=== PATIENT | female | born 1940 | race Caucasian/White ===

== ENCOUNTER → 2016-06-23 | Outpatient (CLI) | payer BC ==
[~2016-06-23] MED LIST: ANT25 PO; BNC40 PO; CLB/200 PO; FEXO1TAB46 PO; LPT/20 PO; NRV/5 PO; NSNN50; ONDA4TAB46 PO; PANT40TA2 PO; RANI300T2 PO; SITA50TA PO; TYLOTC500 PO; VTMD
--- NOTE | 2016-06-23 13:11 | MAMMOGRAPHY REPORT ---
UNILATERAL RIGHT DIGITAL DIAGNOSTIC MAMMOGRAM TOMOSYNTHESIS WITH CAD AND TARGETED RIGHT ULTRASOUND: 06/23/2016 CLINICAL HISTORY: The patient reports pain in her right breast extending to her axillary region. Sh jeannette notes that her provider felt a possible lump in the right breast during breast exam. TECHNIQUE: Breast tomosynthesis in addition to standard 2D mammography was performed. Current study was also evaluated with a Computer Aided Detection (CAD) system. Right CC and MLO 2-D and tomosynt hesis images were obtained. COMPARISON: Comparison is made to exams dated: 11/26/2015 mammogram, 11/23/2014 mammogram, 12/05/2013 s tereotactic biopsy, 12/05/2013 mammogram, 11/26/2013 mammogram, and 11/20/2013 mammogram - [facility]. BREAST COMPOSITION: There are scattered areas of fibroglandular density in the right breast. FINDINGS: A triangle marker fraser the site of the possible lump in the right 12:00 breast. There a re no suspicious masses, calcifications, or areas of architectural distortion noted in the right memo ast. There has been no significant interval change compared to prior exams. A biopsy marker clip i s again noted in the right upper outer quadrant. Scattered benign-appearing calcifications are stab le. Targeted ultrasound was performed of the area of pain pointed out by the patient in the right upper outer quadrant extending to the right axilla. Targeted ultrasound was also performed of the area of the possible lump felt by the patient's physician; the patient could not clearly feel the lump but pointed to the general 12:00 region. No suspicious masses or other suspicious sonographic abnormali ties are evident. A few incidentally noted cysts were seen, including an oval anechoic benign simpl e cyst measuring 8 x 6 mm in the right breast at 8:00, 2 cm from the nipple. 2 adjacent small benig n cysts clusters are noted in the right breast at 11:00, 3 cm from the nipple, one measuring 5 x 4 a nd the other measuring 4 x 6 mm. Morphologically normal right axillary lymph nodes are noted. IMPRESSION: ACR BI-RADS CATEGORY 2: BENIGN, TARGETED ULTRASOUND ACR BI-RADS CATEGORY 2: BENIGN No suspicious mammographic or sonographic abnormality to explain right upper outer quadrant/axillary breast pain. No suspicious mammographic or sonographic abnormality at the site of the possible rig ht 12:00 breast lump pointed out by the patient. There is no mammographic or targeted sonographic evidence of malignancy. Recommend clinical follow- up for right breast pain/lump, and recommend routine bilateral screening mammograms which are due Se 2016. The patient has been verbally notified of the results. Approximately 10% of breast cancers are not detected with mammography. A negative mammographic repor t should not delay biopsy if a clinically suggestive mass is present. Kirstie Daniels M.D. ah/:06/23/2016 11:10:31 Economic Manager: Clau Middleton, [facility] letter sent: Normal 1/2 BI-RADS Code: ACR BI-RADS Category 2: Benign Ultrasound BI-RADS: ACR BI-RADS Category 2: Benign
== END | disposition home or self-care (01) ==
LOC: C.MAMM 08:39
PROVIDERS: ATTEND Obstetrics & Gynecology
DX: N64.4 Mastodynia (principal)

== ENCOUNTER → 2016-08-22 | Outpatient (CLI) | payer BC | END | disposition home or self-care (01) | LOC: C.PAPS 13:56 | PROVIDERS: ATTEND Obstetrics & Gynecology | DX: Z12.4 Encounter for screening for malignant neoplasm of cervix (principal); N87.1 Moderate cervical dysplasia ==

== ENCOUNTER → 2016-12-04 | Outpatient (CLI) | payer BC ==
[~2016-12-04] MED LIST changes: -PANT40TA2 PO; +PRT/40 PO
--- NOTE | 2016-12-05 15:12 | MAMMOGRAPHY REPORT ---
BILATERAL DIGITAL SCREENING MAMMOGRAM TOMOSYNTHESIS WITH CAD: 12/04/2016 CLINICAL HISTORY: Routine screening. Patient has no complaints. TECHNIQUE: Breast tomosynthesis in addition to standard 2D mammography was performed. Current study was also evaluated with a Computer Aided Detection (CAD) system. COMPARISON: Comparison is made to exams dated: 06/23/2016 ultrasound, 06/23/2016 mammogram, 11/26/2015 m ammogram, 11/23/2014 mammogram, 12/05/2013 stereotactic biopsy, and 12/05/2013 mammogram - [facility]. BREAST COMPOSITION: There are scattered areas of fibroglandular density in both breasts. FINDINGS: There is a stable metallic biopsy marker in the retroareolar right breast, and a few benign -appearing calcifications in the right breast. No suspicious spiculated or irregular mass, messaging architect ural distortion or cluster of suspicious microcalcifications is seen. IMPRESSION: ACR BI-RADS CATEGORY 1: NEGATIVE There is no mammographic evidence of malignancy. A 1 year screening mammogram is recommended. The pa tient will receive written notification of the results. Approximately 10% of breast cancers are not detected with mammography. A negative mammographic report should not delay biopsy if a clinically suggestive mass is present. Bhavya Cruz M.D. ay/:12/04/2016 16:35:38 Stonemason: Clau Middleton, [facility] letter sent: Normal 1/2 BI-RADS Code: ACR BI-RADS Category 1: Negative
== END | disposition home or self-care (01) ==
LOC: C.MAMM 08:39
PROVIDERS: ATTEND Obstetrics & Gynecology
DX: Z12.31 Encounter for screening mammogram for malignant neoplasm of breast (principal)

== ENCOUNTER 2020-07-25 14:54 | Inpatient (IN) ==
[2020-07-25] MEDS ORDERED: SODIUM CHLORIDE 0.9% 1000ML 1,000 ML IV ONE (15:17)
[2020-07-25] MEDS ORDERED: FAMOTIDINE 20MG IV PUSH 20 MG/5 ML SYR IV STA (15:17)
[2020-07-25] MEDS ORDERED: METOCLOPRAMIDE HCL INJ 5 MG/ML 2 ML VIAL IV ONE (15:24)
[2020-07-25] MEDS ORDERED: SUCRALFATE 1 GM/10 ML UDC PO STA (15:25)
--- NOTE | 2020-07-25 15:34 | Emergency Department Note ---
Impression & Plan Hypokalemia, Hypomagnesemia, Acute renal insufficiency, Chronic nausea ED Provider Note NAME: ALBA FRY AGE: 79 SEX: F ARRIVES VIA: Walk-In INFORMANT: Patient, ED PROVIDER(S): Oz Powell MD CHIEF COMPLAINT: Nausea, generalized weakness, nausea. PLAN: Disposition: Admit MEDICAL DECISION MAKING: The patient is a pleasant 79-year-old woman with a past medical history of hypertension, type 2 diabetes, dizziness/vertigo, chronic nausea who presents to the emergency department for evaluation of flare of her chronic GI symptoms that have been persistent since June 23 when she reports she got sick after eating some fish and has not recovered. She reports she has had CAT scans and endoscopy through her PCP and GI specialist that were unremarkable. She reports she has gotten lightheaded and fallen at least twice once when she was outside in the garden and another when she was in the shower but denies hitting her head or losing consciousness. She reports she has been ambulating without difficulty since then and denies any headache changes in vision or hearing or weakness in extremities. Denies any bloody or black stools. She reports that she has been told to come to emergency department if she feels any point she is feeling too weak and so presents today for IV fluid hydration. On arrival the patient is fatigued appearing but no acute distress, afebrile stable vital signs. She has mild epigastric discomfort without discrete tenderness. She has no focal neurologic deficits. She appears clinically dry. EKG without overt acute ischemia. CXR negative for acute cardiopulmonary process. WBC, H/H, platelets wnl. Chemistry without acidosis. Cr. 1.5 newly elevated c/w clinically dry appearance. Potassium 2.3 and Magnesium 1.6 with repletion provided. Otherwise, electrolytes unremarkable. LFTs without significant abnormality. Troponin negative/undetectable. Lipase wnl. UA without convincing evidence of infection. Upon re-evaluation the patient as feeling improved after IVF hydration, Famotidine, Reglan, Carafate and initiation of electrolyte repletion. However, given her symptoms of lightheadedness/weakness in the setting of her ongoing chronic nausea and decreased appetitie, she agreed with plan for admission for further electrolyte repletion. Case was discussed with Dr. Justin, [facility] hospitalist, who will evaluate the patient for admission. Triage Nursing notes reviewed and agree them. Prior medical records reviewed Vital Signs: reviewed and remarkable for no significant abnormalities Differential diagnosis: Appendicitis, ovarian cyst, ovarian torsion, ectopic , TOA, PID, infections, diverticulitis, UTI, obstruction, mesenteric ischemia, aortic pathology, inflammatory bowel disease, renal colic, PUD, pancreatitis, biliary pathology, hernia, volvulus, constipation, as well as other pathologies. ER treatment provided: See below. Diagnostics interpreted by me: ECG: NSR, 84 bpm, no ectopy, no overt ST elevation or depression. Cardiac Monitoring: An order for continuous cardiac monitoring was placed and demonstrated NSR, 70 bpm, no ectopy. Laboratory studies: See below Imaging studies: See below Consultation(s): Case was discussed with Dr. Justin, [facility] hospitalist, who will evaluate the patient for admission. HPI: The patient is a pleasant 79-year-old woman with a past medical history of hypertension, type 2 diabetes, dizziness/vertigo, chronic nausea who presents to the emergency department for evaluation of flare of her chronic GI symptoms that have been persistent since June 23 when she reports she got sick after eating some fish and has not recovered. She reports she has had CAT scans and endoscopy through her PCP and GI specialist that were unremarkable. She reports she has gotten lightheaded and fallen at least twice once when she was outside in the garden and another when she was in the shower but denies hitting her head or losing consciousness. She reports she has been ambulating without difficulty since then and denies any headache changes in vision or hearing or weakness in extremities. Denies any bloody or black stools. She reports that she has been told to come to emergency department if she feels any point she is feeling too weak and so presents today for IV fluid hydration. ROS: See above HPI for pertinent positives & negatives. A total of 10 systems reviewed and were otherwise negative. PAST MEDICAL HISTORY:See Below PAST SURGICAL HISTORY:See Below FAMILY HISTORY:See Below SOCIAL HISTORY:See Below HOME MEDICATIONS:See Below ALLERGIES:See Below VITALS:See Below PHYSICAL EXAMINATION: GENERAL: Awake, alert, fatigued-appearing, in no distress HENT: Normocephalic, atraumatic. Oropharynx with dry mucous membranes and otherwise unremarkable. EYES: Normal conjunctiva. Sclera non-icteric. NECK: Supple. No nuchal rigidity. FROM. No JVD. RESPIRATORY: Clear to auscultation. CARDIAC: Regular rate, normal rhythm. Extremities warm and well perfused. Pulses equal. ABDOMEN: Soft, non-distended. Mild epigastric discomfort without discrete tenderness to palpation. No rebound or guarding. No masses. RECTAL: Deferred. MUSCULOSKELETAL: Chest examination reveals no tenderness. The back is symmetrical on inspection without obvious abnormality. There is no CVA tenderness to palpation. No joint edema. LOWER EXTREMITIES: Calves are equal size bilaterally and non-tender. No edema. No discoloration. NEURO: Normal sensorium. No sensory or motor deficits noted. 5/5 strength and SILT x 4 extremities. Cerebellar function intact including [id number]-lasc, alternating palms, [id number]. SKIN: No rash or jaundice noted. Oz Powell MD Past Med/Surg History Medical History DM (diabetes mellitus) HTN (hypertension) Hyperlipidemia IBS (irritable bowel syndrome) Social History Smoking Status: Never smoker Hx Alcohol Use: No Hx Substance Use: No Preferred Language: [employer] [employer] Worker Required: No Beliefs That Will Affect Care: None Current Living Situation: Spouse Current Living Situation Comment: Other Information That Helps Us Care for You: No Feels Safe at Home: Yes Safety Concerns: Feels Safe At This Time Assistive Devices: Glasses Allergies Allergies Allergy/AdvReac Type Severity Reaction Status Date / Time omeprazole Allergy Unknown GI SYMPTOMS Verified 07/25/20 15:40 Home Meds Home Medications Medication Instructions Recorded Confirmed acetaminophen [Tylenol Extra 1,000 mg PO BID PRN 07/25/20 07/25/20 Strength] amlodipine 10 mg PO QAM 07/25/20 07/25/20 atorvastatin 20 mg PO HS 07/25/20 07/25/20 cyanocobalamin (vitamin B-12) 1,000 mcg SUBLINGUAL QAM 07/25/20 07/25/20 [Vitamin B-12] dicyclomine 10 mg PO QID PRN 07/25/20 07/25/20 ergocalciferol (vitamin D2) 50,000 unit PO Q14D 07/25/20 07/25/20 [Vitamin D2] famotidine 40 mg PO BIDM 07/25/20 07/25/20 fexofenadine 180 mg PO DAILY PRN 07/25/20 07/25/20 fluticasone propionate 2 spray INTRANASAL QAM PRN 07/25/20 07/25/20 glipizide 5 mg PO QAM 07/25/20 07/25/20 losartan 100 mg PO QAM 07/25/20 07/25/20 meclizine 25 mg PO TID PRN 07/25/20 07/25/20 metoclopramide HCl 5 mg PO AC 07/25/20 07/25/20 nystatin-triamcinolone [Mycolog II] 1 applic TOPICAL UD 07/25/20 07/25/20 ondansetron HCl 8 mg PO Q8H PRN 07/25/20 07/25/20 tramadol 50 mg PO Q6H PRN 07/25/20 07/25/20 triamcinolone acetonide 1 applic TOPICAL BID PRN 07/25/20 07/25/20 Results & Data (ED) Vital Signs Vital Signs - 24 hr 07/25/20 15:08 07/25/20 17:00 Temperature 36.6 C Temperature Source Temporal Artery Scan Pulse Rate 84 91 H Respiratory Rate 18 17 Respiratory Depth Normal Blood Pressure 162/85 H 140/86 Blood Pressure Mean 110 104 Pulse Oximetry 95 95 Oxygen Delivery Method Room Air Sepsis Recent Fever Within 48 Hours No Sepsis New/Unexplained Change in Mental Status N/A Sepsis Action Taken by Nursing No Action Required Laboratory Data Attestation: I reviewed the patient's lab results. Result diagrams: 07/25/20 15:28 07/25/20 15:28 Lab Results 07/25/20 07/25/20 07/25/20 Range/Units 15:28 15:28 16:44 WBC 6.61 (4.8-10.8) K/uL RBC 4.39 (4.2-5.4) M/uL Hgb 13.1 (12.0-16.0) g/dL Hct 38.7 (37-47) % MCV 88.2 (80-100) fL MCH 29.8 (25-34) pg MCHC 33.9 (32-36) g/dL RDW Std Deviation 38.6 (36.4-46.3) fL RDW Coeff of Noah 12.1 (11.5-14.5) % Plt Count 253 (130-400) K/uL MPV 9.6 (7.4-10.4) fL Immature Gran % (Auto) 0.2 % Neut % (Auto) 61.0 % Lymph % (Auto) 30.9 % Henry % (Auto) 6.2 % Eos % (Auto) 1.2 % Baso % (Auto) 0.5 % Neut # (Auto) 4.04 (1.4-6.5) K/uL Lymph # (Auto) 2.04 (1.2-3.4) K/uL Henry # (Auto) 0.41 (0.11-0.59) K/uL Eos # (Auto) 0.08 (0-0.5) K/uL Baso # (Auto) 0.03 (0-0.2) K/uL Immature Gran # (Auto) 0.01 (0.00-0.02) K/uL Sodium 140 (136-145) mmol/L Potassium 2.3 L* (3.5-5.1) mmol/L Chloride 99 (98-107) mmol/L Carbon Dioxide 32 (21-32) mmol/L Anion Gap 8.0 (3-11) BUN 12 (7-18) mg/dl Creatinine 1.52 H (0.6-1.2) mg/dl Est Cr Clr Drug Dosing 27.1 ml/min Est GFR ( Amer) 37.9 Est GFR (Non-Af Amer) 32.7 BUN/Creatinine Ratio 7.7 L (10-20) Glucose 144 H (70-99) mg/dl Calcium 9.7 (8.5-10.1) mg/dl Phosphorus 3.3 (2.5-4.9) mg/dl Magnesium 1.6 L (1.8-2.4) mg/dl Total Bilirubin 1.1 H (0.2-1) mg/dl Direct Bilirubin 0.2 (0-0.2) mg/dl AST 29 (15-37) U/L ALT 22 (12-78) U/L Alkaline Phosphatase 75 (45-117) U/L Troponin I < 0.015 (0-0.045) ng/ml Total Protein 7.9 (6.4-8.2) gm/dl Albumin 4.1 (3.4-5.0) gm/dl Globulin 3.8 (2.5-4.0) gm/dl Albumin/Globulin Ratio 1.1 (0.9-2) Lipase 144 (73-393) U/L TSH 0.817 (0.300-4.500) uIu/ml Urine Color Yellow Urine Appearance Clear (Clear) Urine pH 7.5 (4.5-7.5) Ur Specific [place] 1.006 (1.000-1.030) Urine Protein Negative (Negative) Urine Glucose (UA) Negative (Negative) Urine Ketones Negative (Negative) Urine Blood Negative (Negative) Urine Nitrite Negative (Negative) Urine Bilirubin Negative (Negative) Urine Urobilinogen Negative (Negative) Ur Leukocyte Esterase Negative (Negative) Administered Medications Atorvastatin Calcium (Atorvastatin 20 Mg Tab) 20 mg PO HS YOUNG Stop: 08/24/20 21:11 Last Admin: 07/25/20 21:43 Dose: 20 mg Documented by: [id number] Dicyclomine HCl (Dicyclomine Hcl 10 Mg Cap) 10 mg PO QID PRN PRN Reason: Nausea Stop: 08/24/20 21:11 Last Admin: 07/25/20 21:44 Dose: 10 mg Documented by: [id number] Ergocalciferol (Ergocalciferol 50,000 Units 1250 Mcg Cap) 50,000 units PO Q14D YOUNG Stop: 08/24/20 21:11 Last Admin: 07/25/20 21:45 Dose: 50,000 units Documented by: [id number] Potassium Chloride/Sodium Chloride (Normal Saline W/20 Meq Kcl) 20 meq in 1,000 mls @ 100 mls/hr IV .Q10H YOUNG Stop: 07/26/20 07:11 Last Admin: 07/25/20 21:46 Dose: 100 mls/hr Documented by: [id number] Nystatin/Triamcinolone Acetonide (Nystatin/Triamcin Cr 15 Gm Tube) 1 appln EXT BID YOUNG Stop: 08/24/20 21:11 Last Admin: 07/25/20 21:45 Dose: 1 appln Documented by: [id number] Discontinued Medications Sodium Chloride (Nss 1000ml) 1,000 mls @ 999 mls/hr IV .Q1H1M ONE Stop: 07/25/20 16:17 Last Infusion: 07/25/20 16:51 Dose: 0 mls/hr Documented by: [id number] Admin: 07/25/20 15:50 Dose: 999 mls/hr Documented by: [id number] Famotidine (Pepcid 20mg Iv Push) 20 mg in 5 mls @ 2.5 mls/min IV NOW STA Stop: 07/25/20 15:18 Last Admin: 07/25/20 15:50 Dose: 2.5 mls/min Documented by: [id number] Magnesium Sulfate/Dextrose (Magnesium Sulfate / D5w) 1 gm in 100 mls @ 100 mls/hr IV Q1H YOUNG Stop: 07/25/20 18:08 Last Infusion: 07/25/20 19:16 Dose: 0 mls/hr Documented by: [id number] Admin: 07/25/20 17:50 Dose: 100 mls/hr Documented by: [id number] Infusion: 07/25/20 17:36 Dose: 0 mls/hr Documented by: [id number] Admin: 07/25/20 16:35 Dose: 100 mls/hr Documented by: [id number] Potassium Chloride (K Jaswinder / Wtr) 10 meq in 100 mls @ 100 mls/hr IV Q1H YOUNG Stop: 07/25/20 18:14 Last Infusion: 07/25/20 19:16 Dose: 0 mls/hr Documented by: [id number] Admin: 07/25/20 17:50 Dose: 100 mls/hr Documented by: [id number] Infusion: 07/25/20 17:36 Dose: 0 mls/hr Documented by: [id number] Admin: 07/25/20 16:35 Dose: 100 mls/hr Documented by: [id number] Metoclopramide HCl (Metoclopramide Hcl Inj 5 Mg/Ml 2 Ml Vial) 5 mg IV ONE ONE Stop: 07/25/20 15:25 Last Admin: 07/25/20 15:50 Dose: 5 mg Documented by: [id number] Potassium Chloride (Potassium Chloride Crtab 20 Meq Tabcr) 40 meq PO NOW STA Stop: 07/25/20 16:09 Last Admin: 07/25/20 16:34 Dose: 40 meq Documented by: [id number] Sucralfate (Sucralfate 1 Gm/10 Ml Udc) 1 gm PO NOW STA Stop: 07/25/20 15:26 Last Admin: 07/25/20 15:50 Dose: 1 gm Documented by: [id number] Imaging Data Radiologist's Impression: Chest X-Ray 07/25/20 15:17 XR chest 1V portable HISTORY: 79 years-old Female Chest Pain acute atypical chest pain COMPARISON: None TECHNIQUE: Portable AP view the chest FINDINGS: Cardiomediastinal and hilar silhouettes are within normal limits. No pneumothorax, pleural effusion, airspace consolidation or overt pulmonary edema. Degenerative changes of the shoulders and spine. IMPRESSION: No acute process. ACT 112: Negative or not required by law. The above report was generated using voice recognition software. It may contain grammatical, syntax or spelling errors. Electronically signed by: Hayden Rogers M.D. 07/25/2020 4:07 PM Discharge Plan Visit Data Chief Complaint: Nausea Stated Complaint: NAUSEA ED Provider: Oz Powell Discharge Problem: Hypokalemia, Hypomagnesemia, Acute renal insufficiency, Chronic nausea Patient Disposition: Admitted As Inpatient Discharge Instructions Interventions: ED Discharge Assessment Last Done: 07/25/20 21:02
[2020-07-25 15:43] LABS: Basophils # (auto) 0.03 K/uL (0-0.2); Basophils % (auto) 0.5 %; Eosinophils # (auto) 0.08 K/uL (0-0.5); Eosinophils % (auto) 1.2 %; Hematocrit (blood only) 38.7 % (37-47); Hemoglobin 13.1 g/dL (12.0-16.0); Immature Granulocytes # (auto) 0.01 K/uL (0.00-0.02); Immature Granulocytes % (auto) 0.2 %; Lymphocytes # (auto) 2.04 K/uL (1.2-3.4); Lymphocytes % (auto) 30.9 %; Mean Corpuscular Hemoglobin 29.8 pg (25-34); Mean Corpuscular Hgb Conc 33.9 g/dL (32-36); Mean Corpuscular Volume 88.2 fL (80-100); Mean Platelet Volume 9.6 fL (7.4-10.4); Monocytes # (auto) 0.41 K/uL (0.11-0.59); Monocytes % (auto) 6.2 %; Neutrophils # (auto) 4.04 K/uL (1.4-6.5); Platelet Count 253 K/uL (130-400); RDW Coefficient of Variation 12.1 % (11.5-14.5); RDW Standard Deviation 38.6 fL (36.4-46.3); Red Blood Count 4.39 M/uL (4.2-5.4); White Blood Count 6.61 K/uL (4.8-10.8)
[2020-07-25 16:06] LABS: Alanine Aminotransferase 22 U/L (12-78); Albumin Level 4.1 gm/dl (3.4-5.0); Aspartate Aminotransferase 29 U/L (15-37); BUN Creatinine Ratio 7.7 (10-20); Bilirubin Direct 0.2 mg/dl (0-0.2); Blood Urea Nitrogen 12 mg/dl (7-18); Calcium 9.7 mg/dl (8.5-10.1); Carbon Dioxide 32 mmol/L (21-32); Chloride 99 mmol/L (98-107); Creatinine Clr Calc Pharmacy 27.1 ml/min; Est GFR (African American) 37.9; Est GFR (Non-African American) 32.7; Glucose 144 mg/dl (70-99); Lipase 144 U/L (73-393); Magnesium 1.6 mg/dl (1.8-2.4); Potassium 2.3 mmol/L (3.5-5.1); Sodium 140 mmol/L (136-145)
[2020-07-25] MEDS ORDERED: POTASSIUM CHLORIDE CRTAB 20 MEQ TABCR PO STA (16:08)
--- NOTE | 2020-07-25 16:08 | XRay Report ---
XR chest 1V portable HISTORY: 79 years-old Female Chest Pain acute atypical chest pain COMPARISON: None TECHNIQUE: Portable AP view the chest FINDINGS: Cardiomediastinal and hilar silhouettes are within normal limits. No pneumothorax, pleural effusion, airspace consolidation or overt pulmonary edema. Degenerative changes of the shoulders and spine. IMPRESSION: No acute process. ACT 112: Negative or not required by law. The above report was generated using voice recognition software. It may contain grammatical, syntax o r spelling errors. Electronically signed by: Hayden Rogers M.D. 07/25/2020 4:07 PM
[2020-07-25 16:26] LABS: Albumin Globulin Ratio 1.1 (0.9-2); Alkaline Phosphatase 75 U/L (45-117); Bilirubin,Total 1.1 mg/dl (0.2-1); Globulin 3.8 gm/dl (2.5-4.0); Phosphorus 3.3 mg/dl (2.5-4.9); Thyroid Stimulating Hormone 0.817 uIu/ml (0.300-4.500); Total Protein 7.9 gm/dl (6.4-8.2); Troponin I < 0.015 ng/ml (0-0.045)
[2020-07-25] MEDS: POTASSIUM CHLORIDE / WTR 10 MEQ/100 ML PLCT IV SCH ×2 (16:35→17:50)
[2020-07-25] MEDS: MAGNESIUM SULFATE / D5W 1 GM/100 ML BAG IV SCH ×2 (16:35→17:50)
[2020-07-25 16:54] LABS: Appearance Urine Clear (Clear); Bilirubin Urine Negative (Negative); Blood Urine Negative (Negative); Color Urine Yellow; Glucose Urine UA Negative (Negative); Ketones Urine Negative (Negative); Leukocyte Esterase Urine Negative (Negative); Nitrite Urine Negative (Negative); Protein Urine Negative (Negative); Specific Gravity Urine 1.006 (1.000-1.030); Urobilinogen Urine Negative (Negative); pH Urine 7.5 (4.5-7.5)
--- NOTE | 2020-07-25 17:43 | History & Physical Report ---
Date of Service July 25, 2020 Assessment & Plan (1) Abdominal pain: Is been a chronic ongoing GI symptoms with abdominal bloating, nausea, poor appetite Has been following with gastroenterology, had multiple GI studies/procedure: EGD gastric emptying, CT abdomen pelvis Currently presents with electrolyte imbalance secondary to poor appetite, dehydration, early satiety Ordered for IV fluids clear liquid diet [facility] Acute renal failure: Secondary to poor appetite, Does not have any vomiting episode or diarrhea For IV fluids avoid NSAIDs, repeat lab in the a.m. Low potassium/low mag Due to above, replaced, ordered for repeat lab in a.m. Full code Disposition: PT OT eval requested for deconditioning, Social service consult for discharge planning, expected to be discharged home when medically stable updated at bedside History of Present Illness Chief Complaint: Abdominal distention/chronic nausea Primary Care Provider: Sanket Chandler MD This is a 79-year-old female, presented to ER, she has been experiencing abdominal distention, nausea, poor appetite, early satiety since June 22, Seen by [facility] gastroenterology, patient had a gastric emptying study last year February, Had EGD and CT abdomen pelvis as an outpatient, no significant pathology was found. Started on Reglan as prokinetics., Reports she could not have a complete meal since last 2 months, She will be able to have few bites of toast in the morning, her abdominal discomfort will continue so much that she will not be able to have any lunch, did not had any vomiting but persistent nausea and dry heaving No diarrhea, had intermittent constipation. No blood in stool, Appetite is extremely poor, no fever or chills. In the ER she noted to have low potassium magnesium, Patient is very anxious, worried about her ongoing issue, with no definite diagnosis. Will be admitted to the floor, will order for clear liquid diet, advance as tolerated Her electrolytes will be replaced [facility] GI consulted Allergies Allergy/AdvReac Type Severity Reaction Status Date / Time omeprazole Allergy Unknown GI SYMPTOMS Verified 07/25/20 15:40 Home Medications Medication Instructions Recorded Confirmed Type acetaminophen [Tylenol Extra 1,000 mg PO BID PRN 07/25/20 07/25/20 History Strength] amlodipine 10 mg PO QAM 07/25/20 07/25/20 History atorvastatin 20 mg PO HS 07/25/20 07/25/20 History cyanocobalamin (vitamin B-12) 1,000 mcg SUBLINGUAL QAM 07/25/20 07/25/20 History [Vitamin B-12] dicyclomine 10 mg PO QID PRN 07/25/20 07/25/20 History ergocalciferol (vitamin D2) 50,000 unit PO Q14D 07/25/20 07/25/20 History [Vitamin D2] famotidine 40 mg PO BIDM 07/25/20 07/25/20 History fexofenadine 180 mg PO DAILY PRN 07/25/20 07/25/20 History fluticasone propionate 2 spray INTRANASAL QAM PRN 07/25/20 07/25/20 History glipizide 5 mg PO QAM 07/25/20 07/25/20 History losartan 100 mg PO QAM 07/25/20 07/25/20 History meclizine 25 mg PO TID PRN 07/25/20 07/25/20 History metoclopramide HCl 5 mg PO AC 07/25/20 07/25/20 History nystatin-triamcinolone [Mycolog II] 1 applic TOPICAL UD 07/25/20 07/25/20 History ondansetron HCl 8 mg PO Q8H PRN 07/25/20 07/25/20 History tramadol 50 mg PO Q6H PRN 07/25/20 07/25/20 History triamcinolone acetonide 1 applic TOPICAL BID PRN 07/25/20 07/25/20 History Past Med/Surg History Medical History DM (diabetes mellitus) HTN (hypertension) Hyperlipidemia IBS (irritable bowel syndrome) Social History Smoking Status: Never smoker Hx Alcohol Use: No Hx Substance Use: No Preferred Language: Bolivian Communication Ability: Effective Marketing Database Consultant Required: No Beliefs That Will Affect Care: None marital status: Current Living Situation: Spouse Current Living Situation Comment: Other Information That Helps Us Care for You: No Feels Safe at Home: Yes Safety Concerns: Feels Safe At This Time Assistive Devices: Glasses Review of Systems Review of Systems: All systems reviewed & are unremarkable except as noted in Subjective Physical Exam Physical Exam: Physical exam: General: No acute distress, alert awake oriented x3 HEENT: PERRLA, EOMI, Heart: Regular S1-S2, no carotid bruit, no JVD, no lower extremity edema Lungs: Clear to auscultate, no wheeze or rales Abdomen: Soft some tenderness in epigastric area, normal bowel sound Extremity: No cyanosis, no deformity, normal strength 5 out of 5 with upper and lower Neuro: No focal neurological deficit normal speech, normal visual field, Motor strength : normal both upper and lower extremity, sensation intact Psych: Alert awake oriented x3, normal affect Results & Data Results & Data ([facility]) Vital Signs (Past 12 Hours) Vital Signs Temp Pulse Resp BP Pulse Ox 07/25/20 15:08 36.6 C 84 18 162/85 H 95 Code Status & VTE Plan VTE Prophylaxis Plan VTE Prophylaxis will be ordered: Yes
[2020-07-25 19:27] LABS: Influenza A virus by PCR Negative (Neg); Influenza B virus by PCR Negative (Neg); RSV by PCR Negative (Neg); SARS CoV2 RNA(COVID-19) InHosp NEGATIVE (Negative)
[2020-07-25] MEDS ORDERED: TRIAMCINOLONE ACET 0.1% CR 15 GM TUBE TOP PRN (21:12)
[2020-07-25] MEDS ORDERED: NSS + 20MEQ KCL 20 MEQ/1,000 ML BAG IV SCH (21:12)
[2020-07-25] MEDS ORDERED: FEXOFENADINE HCL 180 MG TAB PO PRN (21:12)
[2020-07-25] MEDS ORDERED: MAGNESIUM HYDROXIDE SUSP 30 ML UDC PO PRN (21:12)
[2020-07-25] MEDS ORDERED: POLYETHYLENE (MIRALAX) 17 GM PACK PO PRN (21:12)
[2020-07-25] MEDS ORDERED: NITROGLYCERIN SL 0.4 MG/TAB TAB SL PRN (21:12)
[2020-07-25] MEDS ORDERED: ONDANSETRON INJ 2 MG/ML 2 ML VIAL IV PRN (21:12)
[2020-07-25] MEDS ORDERED: ERGOCALCIFEROL 50,000 UNITS 1250 MCG CAP PO SCH (21:12)
[2020-07-25] MEDS ORDERED: ALUMINUM/MAGNESIUM SUSP 30 ML UDC PO PRN (21:12)
[2020-07-25] MEDS ORDERED: FLUTICASONE PROPIONATE NA SPR 16 GM BTL PRN (21:12)
[2020-07-25] MEDS ORDERED: traMADol HCL 50 MG TABLET PO PRN (21:12)
[2020-07-25] MEDS ORDERED: ACETAMINOPHEN 500 MG TAB PO PRN (21:16)
[2020-07-25] MEDS ORDERED: MECLIZINE HCL 25 MG TAB PO PRN (21:18)
[2020-07-25] MEDS: ATORVASTATIN 20 MG TAB PO SCH (21:43)
[2020-07-25] MEDS: DICYCLOMINE HCL 10 MG CAP PO PRN (21:44)
[2020-07-25] MEDS: NYSTATIN/TRIAMCIN CR 15 GM TUBE EXT SCH (21:45)
--- NOTE | 2020-07-25 23:13 | Electrocardiogram Report ---
Test Reason : Blood Pressure : / mmHG Vent. Rate : 084 BPM Atrial Rate : 084 BPM P-R Int : 152 ms QRS Dur : 092 ms QT Int : 378 ms P-R-T Axes : 043 -38 081 degrees QTc Int : 446 ms Normal sinus rhythm Left axis deviation Abnormal ECG When compared with ECG of 04-FEB-2014 10:45, No significant change was found Confirmed by Bryn Spaulding ([id number]) on 07/25/2020 11:13:22 PM Referred By: REFERRED SELF Confirmed By:Bryn Spaulding
[2020-07-26 07:44] LABS: BUN Creatinine Ratio 6.4 (10-20); Calcium 9.1 mg/dl (8.5-10.1); Creatinine Clr Calc Pharmacy 36.2 ml/min; Est GFR (African American) 54.3; Est GFR (Non-African American) 46.8; Magnesium 2.1 mg/dl (1.8-2.4); Potassium 2.7 mmol/L (3.5-5.1)
[2020-07-26] MEDS: CYANOCOBALAMIN 500 MCG TABLET (VITAMIN B-12) PO SCH (08:07)
[2020-07-26] MEDS: METOCLOPRAMIDE HCL 5 MG TABLET PO SCH ×3 (08:07→16:55)
[2020-07-26] MEDS: DICYCLOMINE HCL 10 MG CAP PO PRN (08:07)
[2020-07-26] MEDS: LOSARTAN POTASSIUM 50 MG TAB PO SCH (08:07)
[2020-07-26] MEDS: amLODIPine BESYLATE 5 MG TAB PO SCH (08:08)
[2020-07-26] MEDS: NYSTATIN/TRIAMCIN CR 15 GM TUBE EXT SCH ×2 (08:08→22:29)
[2020-07-26] MEDS: FAMOTIDINE 40 MG TABLET PO SCH ×2 (08:08→16:55)
[2020-07-26] MEDS ORDERED: POTASSIUM CHLORIDE CRTAB 20 MEQ TABCR PO STA (11:59)
[2020-07-26] MEDS ORDERED: POTASSIUM CHLORIDE 10 MEQ TABCR PO STA (12:33)
--- NOTE | 2020-07-26 13:54 | Gastrointestinal Consultation ---
Date of Consultation July 26, 2020 History of Present Illness Attending Physician: Twyla Justin MD Please see midlevel note for details. Pt with PMH sig remote fundoplication, DM with A1 c 7's, chronic nausea, admit with recent worsening of symptoms She reports nausea and subxiphoid pain after eating. Her norwood has included EGD in June + January, GES in February, trial of Reglan. On exam, she is comfortable, pleasant. Abd is soft and NT. Psych exam is notable for flat affect, some mild diff with word finding, and emotional lability. DDX includes gastric dysmotility, functional disease, occult panreatic/biliary pathology. Would consider panc imaging, mesenteric dopplers, trial of Remeron. Allergies Allergy/AdvReac Type Severity Reaction Status Date / Time omeprazole Allergy Unknown GI SYMPTOMS Verified 07/25/20 15:40 Home Medications Medication Instructions Recorded Confirmed Type acetaminophen [Tylenol Extra 1,000 mg PO BID PRN 07/25/20 07/25/20 History Strength] amlodipine 10 mg PO QAM 07/25/20 07/25/20 History atorvastatin 20 mg PO HS 07/25/20 07/25/20 History cyanocobalamin (vitamin B-12) 1,000 mcg SUBLINGUAL QAM 07/25/20 07/25/20 History [Vitamin B-12] dicyclomine 10 mg PO QID PRN 07/25/20 07/25/20 History ergocalciferol (vitamin D2) 50,000 unit PO Q14D 07/25/20 07/25/20 History [Vitamin D2] famotidine 40 mg PO BIDM 07/25/20 07/25/20 History fexofenadine 180 mg PO DAILY PRN 07/25/20 07/25/20 History fluticasone propionate 2 spray INTRANASAL QAM PRN 07/25/20 07/25/20 History glipizide 5 mg PO QAM 07/25/20 07/25/20 History losartan 100 mg PO QAM 07/25/20 07/25/20 History meclizine 25 mg PO TID PRN 07/25/20 07/25/20 History metoclopramide HCl 5 mg PO AC 07/25/20 07/25/20 History nystatin-triamcinolone [Mycolog II] 1 applic TOPICAL UD 07/25/20 07/25/20 History ondansetron HCl 8 mg PO Q8H PRN 07/25/20 07/25/20 History tramadol 50 mg PO Q6H PRN 07/25/20 07/25/20 History triamcinolone acetonide 1 applic TOPICAL BID PRN 07/25/20 07/25/20 History Patient History Medical History DM (diabetes mellitus) HTN (hypertension) Hyperlipidemia IBS (irritable bowel syndrome) Social History Smoking Status: Never smoker Hx Alcohol Use: No Hx Substance Use: No Preferred Language: Kiswahili Communication Ability: Effective [employer] Required: No Beliefs That Will Affect Care: None marital status: Current Living Situation: Spouse Current Living Situation Comment: Other Information That Helps Us Care for You: No Feels Safe at Home: Yes Safety Concerns: Feels Safe At This Time Assistive Devices: Glasses Results & Data ([facility]) Vital Signs (Past 12 Hours) Vital Signs Temp Pulse Pulse Resp BP Pulse Ox 07/26/20 11:02 37 C 76 18 121/73 97 07/26/20 08:00 77 07/26/20 07:09 36.6 C 76 18 138/73 95 07/26/20 02:15 36.5 C 70 20 125/71 91
[2020-07-26] MEDS ORDERED: FOSAPREPITANT DIMEGLUMINE 150 MG in SODIUM CHLORIDE 0.9% 145 ML IV ONE (15:30)
[2020-07-26] MEDS ORDERED: LORazepam 0.5 MG/1 ML VIAL IV SCH (17:00)
--- NOTE | 2020-07-26 17:01 | Gastrointestinal Consultation ---
Date of Consultation July 26, 2020 Assessment & Plan (1) Chronic nausea: Will r/o pancreas pathology with MRI/MRCP. Will try Remeron, low dose at bedtime for sadness and to improve appetite and nausea. Aware she is on Effexor - may want to decrease the dose of Effexor. Continue the Zofran 4mg Q 6hrs prn. Continue the metoclopramide 5mg TID before meals. Trial of Emend. Consider Neuro and psych causes of nausea - consider imaging of the head. Present on Admission?: Yes Supervising Physician Co-Signing Physician Notes Attg: Please see my separate note. History of Present Illness Reason for Consultation: chronic abdominal pain /nausea Requesting Physician: Dr. Justin Attending Physician: Twyla Justin MD History of Present Illness Ms. Ana Solitario is a 79 yr old female pt of Dr. Chandler with a hx of polymyalgia rheumatica, HTN, hyperlipidemia, DM-2, post cholecystectomy and hysterectomy who has chronic nausea and IBS. On June 18, she had a very bad day with nausea, vomiting, dry heaves and diarrhea. Since that day, she has continued with severe nausea, poor appetite and has had considerable sadness related to feeling poorly and not being able to participate in family get togethers. She also notes having had memory problems that started around the same time. She has a poor appetite and has lost about 15 lbs since April 2020. She tells me that she presented to the ED because she had been encouraged to come if symptoms worsened and family suggested hospital evaluation because they are worried that she has been sick for a long time. She has been followed in GI clinic by myself and has undergone EGD in December for dysphagia (gastric polyps, esophagus empirically dilated), and on 07/06/20 normal. Her most recent colonoscopy was in 2018 with diverticulosis and hemorrhoids, no polyps. She had an episode of JUAN LUIS on CKD in mid June related to poor intake with improvement to Cr 1.3 a week later, but blood count, labs and lipase have been normal. She had some diarrhea a few weeks ago and stools for C- diff and GI path were negative. CT abd/pelvis w/o contrast July 06 was normal with the exception of a possible kidney cyst and recommended US follow up. Gastric emptying study in February was borderline delayed and metoclopramide 5mg TID did not improve symptoms (a trial was repeated again BID recently w/o eff ect). Zofran and famotidine has helped minimally. On arrival, she was hypokalemic with K and has received po replacement. She has had 3 episodes of diarrhea this afternoon. She denies any significant abdominal pain. She is awake, alert, oriented, though has some word finding problems and talks about difficulty remembering. Allergies Allergy/AdvReac Type Severity Reaction Status Date / Time omeprazole Allergy Unknown GI SYMPTOMS Verified 07/25/20 15:40 Home Medications Medication Instructions Recorded Confirmed Type acetaminophen [Tylenol Extra 1,000 mg PO BID PRN 07/25/20 07/25/20 History Strength] amlodipine 10 mg PO QAM 07/25/20 07/25/20 History atorvastatin 20 mg PO HS 07/25/20 07/25/20 History cyanocobalamin (vitamin B-12) 1,000 mcg SUBLINGUAL QAM 07/25/20 07/25/20 History [Vitamin B-12] dicyclomine 10 mg PO QID PRN 07/25/20 07/25/20 History ergocalciferol (vitamin D2) 50,000 unit PO Q14D 07/25/20 07/25/20 History [Vitamin D2] famotidine 40 mg PO BIDM 07/25/20 07/25/20 History fexofenadine 180 mg PO DAILY PRN 07/25/20 07/25/20 History fluticasone propionate 2 spray INTRANASAL QAM PRN 07/25/20 07/25/20 History glipizide 5 mg PO QAM 07/25/20 07/25/20 History losartan 100 mg PO QAM 07/25/20 07/25/20 History meclizine 25 mg PO TID PRN 07/25/20 07/25/20 History metoclopramide HCl 5 mg PO AC 07/25/20 07/25/20 History nystatin-triamcinolone [Mycolog II] 1 applic TOPICAL UD 07/25/20 07/25/20 History ondansetron HCl 8 mg PO Q8H PRN 07/25/20 07/25/20 History tramadol 50 mg PO Q6H PRN 07/25/20 07/25/20 History triamcinolone acetonide 1 applic TOPICAL BID PRN 07/25/20 07/25/20 History Patient History Medical History DM (diabetes mellitus) HTN (hypertension) Hyperlipidemia IBS (irritable bowel syndrome) Social History Smoking Status: Never smoker Hx Alcohol Use: No Hx Substance Use: No Preferred Language: Azeri Communication Ability: Effective 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 : Denies pain on urination Skin: No jaundice, itching or new rashes Physical Exam Constitutional: WD/WN, vitals as above + overweight (mildly) Eyes: PERRL, conjunctivae normal, anicteric sclerae ENMT: external ear and nose normal, oropharynx normal Neck: trachea midline, no thyromegaly Respiratory: normal respiratory effort, lungs clear to auscultation Cardiovascular: RRR, no murmur, no edema Gastrointestinal (Abdomen): normal bowel sounds, soft, nontender, no hepatosplenomegaly Musculoskeletal: no cyanosis or clubbing, extremities motor strength 5/5 Skin: no rashes, warm and dry Neurologic: PERRL, EOMI, accommodation nl, no face palsy, no dysarthria Psychiatric: Orientation: alert and oriented x 3 tearful during interview but quickly recovered to calm; always pleasant and appreciative but voiced frustration Lymphatic: no cervical or axillary lymphadenopathy Results & Data ([facility]) Vital Signs (Past 12 Hours) Vital Signs Temp Pulse Pulse Resp BP Pulse Ox 07/26/20 15:50 37.1 C 79 18 142/77 H 97 07/26/20 15:37 108 H 07/26/20 11:02 37 C 76 18 121/73 97 07/26/20 08:00 77 07/26/20 07:09 36.6 C 76 18 138/73 95 Laboratory Results WBC 6, Hb 13, hct 38, platelets 13, glucose 253, Na 143, K 2.7, Cl 107, BUN 7, Cr 1.13. LFTs and lipase normal. Diagnostic Findings CXR No acute process.
[2020-07-26] MEDS: ATORVASTATIN 20 MG TAB PO SCH (22:28)
[2020-07-26] MEDS: MIRTAZAPINE TAB 15 MG TAB PO SCH (22:29)
--- NOTE | 2020-07-26 23:23 | Hospitalist Progress Note ---
Date of Service July 26, 2020 Assessment & Plan (1) Abdominal pain: Is been a chronic ongoing GI symptoms with abdominal bloating, nausea, poor appetite Has been following with gastroenterology, had multiple GI studies/procedure: EGD gastric emptying, CT abdomen pelvis Currently presents with electrolyte imbalance secondary to poor appetite, dehydration, early satiety Patient reports her symptoms remains same, still have abdominal pain bloating no nausea vomiting Patient input from GI Her last EGD on 07/06/[address] abdomen pelvis without contrast on 07/06/2020 was normal with exception for possible kidneys cyst Gastric emptying study in February 2020 was borderline delayed and has been on Reglan 5 mg 3 times daily Appreciate input from gastroenterology, ordered for MRCP of abdomen, shows no biliary ductal dilatation no liver or gallbladder disease Diet advance to solid, tolerating well Acute renal failure: Resolved renal function normalized after IV fluids Secondary to poor appetite, Does not have any vomiting episode or diarrhea Avoid NSAIDs Low potassium/low mag Replaced, follow labs in a.m. Full code Disposition: PT OT eval requested for deconditioning, Social service consult for discharge planning, expected to be discharged home when medically stable Admission and Anticipated Discharge Date Admission Date: July 25, 2020 Subjective Patient reports of persistent poor appetite, no abdominal pain or bloating today, nausea has improved after getting Zofran No fever or chills Had 2-3 bowel movements today had not had any bowel movement for the past 5 days No fever or chills, no shortness of breath, no dyspnea on exertion Review of Systems Review of Systems: All systems reviewed & are unremarkable except as noted in Subjective Physical Exam Physical Exam: Physical exam: General: No acute distress, alert awake oriented x3 HEENT: PERRLA, EOMI, Heart: Regular S1-S2, no carotid bruit, no JVD, no lower extremity edema Lungs: Clear to auscultate, no wheeze or rales Abdomen: Soft some tenderness in epigastric area, normal bowel sound Extremity: No cyanosis, no deformity, normal strength 5 out of 5 with upper and lower Neuro: No focal neurological deficit normal speech, normal visual field, Motor strength : normal both upper and lower extremity, sensation intact Psych: Alert awake oriented x3, normal affect Results & Data Results & Data ([facility]) Vital Signs (Past 12 Hours) Vital Signs Temp Pulse Pulse Resp BP Pulse Ox 05/03/21 23:11 36.7 C 77 14 118/79 98 07/26/20 19:00 36.5 C 80 18 132/71 97 07/26/20 15:50 37.1 C 79 18 142/77 H 97 07/26/20 15:37 108 H
[2020-07-27] MEDS: amLODIPine BESYLATE 5 MG TAB PO SCH (08:41)
[2020-07-27] MEDS: LOSARTAN POTASSIUM 50 MG TAB PO SCH (08:41)
[2020-07-27] MEDS: CYANOCOBALAMIN 500 MCG TABLET (VITAMIN B-12) PO SCH (08:41)
[2020-07-27] MEDS: FAMOTIDINE 40 MG TABLET PO SCH ×2 (08:41→16:25)
[2020-07-27] MEDS: METOCLOPRAMIDE HCL 5 MG TABLET PO SCH ×3 (08:41→16:24)
[2020-07-27] MEDS: NYSTATIN/TRIAMCIN CR 15 GM TUBE EXT SCH ×2 (08:44→21:02)
--- NOTE | 2020-07-27 09:13 | Magnetic Resonance Report ---
MRCP CLINICAL HISTORY: weight loss, nausea TECHNIQUE: Utilizing a 1.5 Rachel magnet and dedicated coil, multiplanar, multiecho imaging of the upp er abdomen was performed utilizing heavily T2 weighted pulsing sequences without IV contrast. COMPARISON STUDY: Renal ultrasound February 04, 2014. FINDINGS: The gallbladder is surgically absent. There is no intra or extra hepatic biliary ductal dil atation status post cholecystectomy. The common bile duct measures 6 mm in caliber. No common bile du ct calculi are identified. The caliber of the main pancreatic duct is normal. This exam is mildly com promised by motion artifact. Evaluation of the pancreas is suboptimal. No hepatic lesions are identif ied on this unenhanced exam. Liver morphology is normal. There is no ascites. Unenhanced images of th e spleen, adrenal glands and kidneys are unremarkable. There is no hydronephrosis. No abdominal lymph adenopathy is noted. The caliber of visualized small and large bowel are normal. IMPRESSION: 1. No biliary ductal dilatation status post cholecystectomy. No common bile duct calculi identified. 2. Unremarkable MRCP although exam mildly compromised by artifact. ACT 112: Negative or not required by law. Electronically signed by: Dev Del Rosario M.D. 07/27/2020 9:12 AM
--- NOTE | 2020-07-27 13:17 | Ultrasound Report ---
DOPPLER ULTRASOUND OF THE MESENTERIC VASCULATURE CLINICAL HISTORY: Generalized abdominal pain. Weight loss. COMPARISON STUDY: [facility] dated 07/26/2020. FINDINGS: Real-time grayscale and color Doppler sonography of the mesenteric vasculature is performed . The abdominal aorta is patent with velocities measuring up to 52 cm/s. The celiac trunk and superio r mesenteric artery patent. Velocities in the celiac artery measure up to 130 cm/s. There are elevate d velocities within the proximal superior mesenteric artery which measure up to 440 cm/s. The main he patic artery is patent with velocities measuring up to 64 cm/s. IMPRESSION: 1. The celiac and superior mesenteric arteries are patent. 2. There are elevated velocities within the proximal superficial mesenteric artery suggesting high-gr rea stenosis. 3. There is no sonographic evidence of celiac artery stenosis. Electronically signed by: Gallo Prince M.D. 07/27/2020 1:15 PM
[2020-07-27 13:21] LABS: BUN Creatinine Ratio 8.1 (10-20); Calcium 9.6 mg/dl (8.5-10.1); Creatinine Clr Calc Pharmacy 29.1 ml/min; Est GFR (African American) 41.9; Est GFR (Non-African American) 36.2; Magnesium 1.7 mg/dl (1.8-2.4); Potassium 3.4 mmol/L (3.5-5.1)
--- NOTE | 2020-07-27 14:45 | Gastroenterology Progress Note ---
Date of Service July 27, 2020 Assessment & Plan (1) Chronic nausea: US suggesting SMA stenosis - will arrange CTA abdomen/pelvis to r/o significant abdominal vascular occlusive disease. Emend and/or Remeron seem to be improving her nausea, would continue the Remeron. Will consider a second dose of Emend if nausea returns. Continue the Zofran 4mg Q 6hrs prn. Continue the metoclopramide 5mg TID before meals. Consider Neuro and psych causes of nausea - consider imaging of the head. Present on Admission?: Yes Admission and Anticipated Discharge Date Admission Date: July 25, 2020 Supervising Physician Co-Signing Physician Notes Attg add: I interviewed and examined pt, reviewed chart and labs. Pt with mild improvement in nausea after Emend yesterday; her appetite has improved. Had MRCP that was unremarkable, mesenteric dopplers that showed single vessel high grade stenosis. Began Remeron yesterday. Would continue Remeron. Consider vascular imaging to f/u doppler findings of single high grade stenosis. OK for d/c tomorrow, will cont w/u as outpt. Subjective Admitted on 07/25/20 for acute worsening of nausea. Approx 10 lbs weight loss in 6months, chronic epigastric abd pain. Nausea improved soon after Emend dose yesterday. Slept well last night. Able to eat a small breakfast and lunch today w/o significant nausea. Review of Systems Review of Systems: ROS: Gen: Denies weakness, fevers, weight loss Eyes: No eye redness, or pain, no recent vision changes Resp: No SOB, no cough Cardio: No palpitations/irregular beats, no chest pain GI: See HPI, otherwise (-) : Denies pain on urination Skin: No jaundice, itching or new rashes Physical Exam Constitutional: WD/WN, vitals as above + overweight (mildly) Eyes: PERRL, conjunctivae normal, anicteric sclerae ENMT: external ear and nose normal, oropharynx normal Neck: trachea midline, no thyromegaly Respiratory: normal respiratory effort, lungs clear to auscultation Cardiovascular: RRR, no murmur, no edema Gastrointestinal (Abdomen): Inspection/Auscultation: abdomen normal to inspection; abdomen not distended Percussion/Palpation: + abdomen tender (mild epigastric tenderness) and abdomen soft Musculoskeletal: no cyanosis or clubbing, extremities motor strength 5/5 Skin: no rashes, warm and dry Neurologic: PERRL, EOMI, accommodation nl, no face palsy, no dysarthria Psychiatric: Orientation: alert and oriented x 3 Lymphatic: no cervical or axillary lymphadenopathy Results & Data ([facility]) Vital Signs (Past 12 Hours) Vital Signs Temp Pulse Pulse Resp BP Pulse Ox 07/27/20 11:42 37.2 C 107 H 18 123/76 98 07/27/20 08:39 119 H 123/73 96 07/27/20 08:00 67 07/27/20 07:24 36.9 C 77 18 101/61 98 07/27/20 04:01 36.6 C 70 18 131/74 93 Laboratory Results Na 139, K 3.4, Cl 105, CO2 29, BUN 11, Cr 1.4, Glucose 189, Mg 1.7 Diagnostic Findings Mesenteric Doppler US: 1. The celiac and superior mesenteric arteries are patent. 2. There are elevated velocities within the proximal superficial mesenteric artery suggesting high-grade stenosis. 3. There is no sonographic evidence of celiac artery stenosis. MRCP: 1. No biliary ductal dilatation status post cholecystectomy. No common bile duct calculi identified. 2. Unremarkable MRCP although exam mildly compromised by artifact.
[2020-07-27] MEDS ORDERED: SODIUM CHLORIDE 0.9% 1000ML 1,000 ML IV SCH (15:15)
[2020-07-27] MEDS ORDERED: MAGNESIUM SULFATE / D5W 1 GM/100 ML BAG IV ONE (16:39)
--- NOTE | 2020-07-27 16:49 | Hospitalist Progress Note ---
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 Martell, recommends to have a CT angiogram of abdomen pelvis in a.m. Vascular team will follow patient after the imaging to provide further recommendation No indication for anticoagulation/IV heparin in the setting Has been following with gastroenterology, had multiple GI studies/procedure: EGD gastric emptying, CT abdomen pelvis Currently presents with electrolyte imbalance secondary to poor appetite, dehydration, early satiety Her last EGD on 07/06/[address] abdomen pelvis without contrast on 07/06/2020 was normal with exception for possible kidneys cyst Gastric emptying study in February 2020 was borderline delayed and has been on Reglan 5 mg 3 times daily Appreciate input from gastroenterology, MRCP of abdomen, shows no biliary ductal dilatation no liver or gallbladder disease Acute renal failure: Possible secondary to dehydration and poor p.o. intake, Hold losartan, patient will be given IV fluids to improve creatinine as we will need contrast study CTA abdomen pelvis for superior mesenteric artery stenosis Low potassium/low mag Replaced, follow labs in a.m. Full code Disposition: PT OT eval requested for deconditioning, Social service consult for discharge planning, expected to be discharged home when medically stable Admission and Anticipated Discharge Date Admission Date: July 25, 2020 Subjective Patient still have a poor appetite, able to have small snacks. No complaint of abdominal pain or discomfort, no fever or chills, No nausea Had 2 bowel movements liquid stool yesterday, no bowel movement today, No complaint of shortness of breath or dyspnea on exertion, Updated regarding abdominal ultrasound showing mesenteric artery stenosis which could be contributing to her ongoing abdominal discomfort, Scheduled for CTA angiogram of abdomen pelvis tomorrow morning. Review of Systems Review of Systems: All systems reviewed & are unremarkable except as noted in Subjective Physical Exam Physical Exam: Physical exam: General: No acute distress, alert awake oriented x3 HEENT: PERRLA, EOMI, Heart: Regular S1-S2, no carotid bruit, no JVD, no lower extremity edema Lungs: Clear to auscultate, no wheeze or rales Abdomen: Soft some tenderness in epigastric area, normal bowel sound Extremity: No cyanosis, no deformity, normal strength 5 out of 5 with upper and lower Neuro: No focal neurological deficit normal speech, normal visual field, Motor strength : normal both upper and lower extremity, sensation intact Psych: Alert awake oriented x3, normal affect Results & Data Results & Data ([facility]) Vital Signs (Past 12 Hours) Vital Signs Temp Pulse Pulse Resp BP Pulse Ox 07/27/20 15:15 37.1 C 80 16 106/66 95 07/27/20 11:42 37.2 C 107 H 18 123/76 98 07/27/20 08:39 119 H 123/73 96 07/27/20 08:00 67 07/27/20 07:24 36.9 C 77 18 101/61 98
[2020-07-27] MEDS: ATORVASTATIN 20 MG TAB PO SCH (21:02)
[2020-07-27] MEDS: MIRTAZAPINE TAB 15 MG TAB PO SCH (21:02)
[2020-07-28] MEDS: METOCLOPRAMIDE HCL 5 MG TABLET PO SCH ×3 (08:01→17:07)
[2020-07-28] MEDS: amLODIPine BESYLATE 5 MG TAB PO SCH (08:01)
[2020-07-28] MEDS: FAMOTIDINE 40 MG TABLET PO SCH ×2 (08:01→17:07)
[2020-07-28] MEDS: NYSTATIN/TRIAMCIN CR 15 GM TUBE EXT SCH ×2 (08:02→20:24)
[2020-07-28] MEDS: CYANOCOBALAMIN 500 MCG TABLET (VITAMIN B-12) PO SCH (08:02)
[2020-07-28 08:47] LABS: BUN Creatinine Ratio 11.5 (10-20); Calcium 9.8 mg/dl (8.5-10.1); Creatinine Clr Calc Pharmacy 37.6 ml/min; Est GFR (African American) 55.5; Est GFR (Non-African American) 47.9; Potassium 2.8 mmol/L (3.5-5.1)
[2020-07-28] MEDS ORDERED: OPTIRAY 350 500ml IV ONE (08:54)
[2020-07-28] MEDS ORDERED: OPTIRAY 300 100mL IV ONE (08:54)
--- NOTE | 2020-07-28 09:23 | CT Scan Report ---
CT ANGIOGRAPHY OF THE ABDOMEN AND PELVIS CLINICAL HISTORY: Superior mesenteric artery stenosis. COMPARISON STUDY: Doppler ultrasound of the mesenteric vessels July 27, 2020. MRCP July 26, 2020. TECHNIQUE: Helical axial images of the abdomen and pelvis were obtained during arterial phase followi ng intravenous injection of 120 cc Optiray 320 IV. Sagittal and coronal reconstructions were viewed a s well as maximal intensity projections on an independent 3-D workstation. Automated exposure control was utilized for the study. A dose lowering technique was utilized adhering to the principles of AL KRANTHI. FINDINGS: Lung bases are unremarkable. No pneumatosis, free air or portal venous gas is present. Laura rial phase images of the liver, spleen, adrenal glands and pancreas are unremarkable. There is mild r ight and moderate left renal cortical thinning. Note is made of a 1 cm lesion within the midpole of t he left kidney on axial image 124 of 436. This measures above water attenuation. Right renal lesions are difficult to characterize given their small size but likely reflect cysts. Note is made of an 8 m m calculus within lower pole of the left kidney. There is no biliary or pancreatic ductal dilatation. There is no hydronephrosis. There is no evidence for a bowel obstruction. Sigmoid diverticulosis is noted without evidence for acute diverticulitis. There is no lymphadenopathy or ascites. Appendix is not identified. The caliber of the abdominal aorta is normal. There is no dissection. There is moderate atherosclerot ic plaque within the abdominal aorta and branch vessels. There is abnormal configuration of the proxi mal celiac axis with mild to moderate narrowing. This is due to the median arcuate ligament. There is mild poststenotic dilatation of 1 1 cm. There is moderate stenosis of the proximal superior mesenter ic artery with approximately 60% stenosis. The inferior mesenteric artery is patent. Bilateral renal arteries are patent. IMPRESSION: 1. Approximately 60% stenosis of the proximal superior mesenteric artery. Mild to moderate narrowing of the proximal celiac axis with abnormal configuration. The findings are due to the median arcuate l igament. Patent inferior mesenteric artery. 2. No acute process within the abdomen or pelvis on arterial phase exam. 3. 1 cm hypodense left renal lesion. This could reflect a proteinaceous cyst or small solid renal les ion. Renal protocol MRI in 6 months is recommended. 4. 8 mm left renal calculus. ACT 112: Negative or not required by law. w Electronically signed by: Dev Del Rosario M.D. 07/28/2020 9:22 AM
[2020-07-28] MEDS ORDERED: POTASSIUM CHLORIDE PWD 20 MEQ PACK PO ONE (10:30)
[2020-07-28] MEDS: POTASSIUM CHLORIDE / WTR 10 MEQ/100 ML PLCT IV SCH ×4 (10:50→14:57)
[2020-07-28] MEDS ORDERED: SODIUM CHLORIDE 0.9% 500 ML IV ONE (11:22)
--- NOTE | 2020-07-28 14:10 | Communication Note ---
Date of Service: July 28, 2020 CTA abdomen pelvis results evaluated: Approximately 60% stenosis of the proximal superior mesenteric artery. Mild to moderate narrowing of the proximal celiac axis with abnormal configuration. 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 Patent inferior mesenteric artery. Discussed the CT report with Dr. Martell vascular surgery. Given 60% stenosis, patient's GI symptoms are not related to severe mesenteric artery stenosis, No need for vascular intervention. Recommends patient should be on aspirin and statin, Already on atorvastatin 40 mg daily. Added aspirin 81 mg daily Fasting lipid panel in a.m. goal LDL less than 70. Clinic follow-up with Dr. Martell in 6 months. Twyla Justin MD
--- NOTE | 2020-07-28 14:16 | Gastroenterology Progress Note ---
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 dementia, depression. Recommend OP vascular surgery claire (Phil). OK with DC from a GI standpoint. Present on Admission?: Yes Admission and Anticipated Discharge Date Admission Date: July 25, 2020 Supervising Physician Co-Signing Physician Notes Attg add: I interviewed and examined pt, reviewed chart and labs. She reports mild nausea and abdominal discomfort today. She ate breakfast well, but did not eat much of her lunch. I reviewed imaging with Dr. 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 MALS - I suspect that her symptoms may be functional, related to underlying psych disease. It may be possibly that she has gastroparesis or gastric dysmotility. Will continue Remeron, consider d/c Reglan. Her imaging is suggestive of Median arcuate ligament syndrome - can consider outpt celiac block for this. She is asking for a second vascular surgery opinion, which can be arranged as an outpt. OK for d/c home from our standpoint. Subjective Good appetite at breakfast but poor appetite, upper abd discomfort and ate only small bites of lunch Very mild nausea, improved compared to prior to hospitalization. 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 Review of Systems Review of Systems: ROS: Gen: Denies weakness, fevers, weight loss Eyes: No eye redness, or pain, no recent vision changes Resp: No SOB, no cough Cardio: No palpitations/irregular beats, no chest pain GI: See HPI, otherwise (-) : Denies pain on urination Skin: No jaundice, itching or new rashes Physical Exam Constitutional: WD/WN, vitals as above + overweight (mildly) Eyes: PERRL, conjunctivae normal, anicteric sclerae ENMT: external ear and nose normal, oropharynx normal Neck: trachea midline, no thyromegaly Respiratory: normal respiratory effort, lungs clear to auscultation Cardiovascular: RRR, no murmur, no edema Gastrointestinal (Abdomen): Inspection/Auscultation: abdomen normal to inspection; abdomen not distended Percussion/Palpation: + abdomen tender (diffuse upper abd discomfort) and abdomen soft Musculoskeletal: no cyanosis or clubbing, extremities motor strength 5/5 Skin: no rashes, warm and dry Neurologic: PERRL, EOMI, accommodation nl, no face palsy, no dysarthria Psychiatric: Orientation: alert and oriented x 3 Motor Behavior: + tremor Affect: + labile affect Lymphatic: no cervical or axillary lymphadenopathy Results & Data ([facility]) Vital Signs (Past 12 Hours) Vital Signs Temp Pulse Resp BP BP Pulse Ox 07/28/20 07:00 36.7 C 82 18 129/77 98 07/28/20 02:50 36.7 C 71 20 118/70 97 Laboratory Results Na 143, K 2.8, BUN 8, Cr 0.47, glucose 130 Diagnostic Findings CTA 07/28/20: 1. Approximately 60% stenosis of the proximal superior mesenteric artery. Mild to moderate narrowing of the proximal celiac axis with abnormal configuration. 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 Patent inferior mesenteric artery. 2. No acute process within the abdomen or pelvis on arterial phase exam. 3. 1 cm hypodense left renal lesion. This could reflect a proteinaceous cyst or small solid renal lesion. Renal protocol MRI in 6 months is recommended. 4. 8 mm left renal calculus.
--- NOTE | 2020-07-28 14:26 | Consultation ---
Date of Consultation July 28, 2020 Assessment & Plan (1) Mesenteric artery stenosis: Pt with moderate SMA stenosis and mild compression of celiac axis by median arcuate ligament on imaging. Pt imaging reviewed by and pt discussed with Dr Martell. Sx inconsistent with mesenteric ischemia. Do not recommend vascular surgical intervention at this time. Recommend reeval in 6 months with mesenteric US. Discussed with pt, she is agreeable to this plan. History of Present Illness Reason for Consultation: SMA stenosis Attending Physician: Luis De La Fuente MD History of Present Illness 79 yo f with multiple medical problems, including HTN, DMII, vertigo, seasonal allergies, admitted with intractable nausea, seen in consultation today for SMA stenosis noted on US and CTA. Pt states she had relatively sudden onset of N/V/D on 06/23/20, which lasted about 3 days, then subsided to just constant nausea after that, until she noted some lower abd pain and came to [facility]. Pt states she lost about 12 lbs over this time period d/t not eating. States has had some lower abd pains before which usually preceded a bowel movement, but denies pain in upper abd. Denies hx of post prandial pain, but does state she is only eating very little amounts for past few weeks d/t nausea. Denies significant unintended weight loss prior to this event. States all sx are resolved at this time. Denies hematochezia, melena, HEBERT, fever, chest pain, SOB, abd pain presently, N/V presently, rest pain, claudication, other complaints. mesenteric US demonstrates moderate stenosis of SMA. CTA abd/pelvis demonstrates approx 50% stenosis of SMA and some mild compression of celiac artery d/t median arcuate ligament, but widely patent FAZAL. Allergies Allergy/AdvReac Type Severity Reaction Status Date / Time omeprazole Allergy Unknown GI SYMPTOMS Verified 07/25/20 15:40 Home Medications Medication Instructions Recorded Confirmed Type acetaminophen [Tylenol Extra 1,000 mg PO BID PRN 07/25/20 07/25/20 History Strength] amlodipine 10 mg PO QAM 07/25/20 07/25/20 History atorvastatin 20 mg PO HS 07/25/20 07/25/20 History cyanocobalamin (vitamin B-12) 1,000 mcg SUBLINGUAL QAM 07/25/20 07/25/20 History [Vitamin B-12] dicyclomine 10 mg PO QID PRN 07/25/20 07/25/20 History ergocalciferol (vitamin D2) 50,000 unit PO Q14D 07/25/20 07/25/20 History [Vitamin D2] famotidine 40 mg PO BIDM 07/25/20 07/25/20 History fexofenadine 180 mg PO DAILY PRN 07/25/20 07/25/20 History fluticasone propionate 2 spray INTRANASAL QAM PRN 07/25/20 07/25/20 History glipizide 5 mg PO QAM 07/25/20 07/25/20 History losartan 100 mg PO QAM 07/25/20 07/25/20 History meclizine 25 mg PO TID PRN 07/25/20 07/25/20 History metoclopramide HCl 5 mg PO AC 07/25/20 07/25/20 History nystatin-triamcinolone [Mycolog II] 1 applic TOPICAL UD 07/25/20 07/25/20 History ondansetron HCl 8 mg PO Q8H PRN 07/25/20 07/25/20 History tramadol 50 mg PO Q6H PRN 07/25/20 07/25/20 History triamcinolone acetonide 1 applic TOPICAL BID PRN 07/25/20 07/25/20 History Patient History Medical History DM (diabetes mellitus) HTN (hypertension) Hyperlipidemia IBS (irritable bowel syndrome) Social History Smoking Status: Never smoker Hx Alcohol Use: No Hx Substance Use: No Preferred Language: Mauritian Communication Ability: Effective Supervisor Electronic Coils Required: No Beliefs That Will Affect Care: None marital status: Current Living Situation: Spouse Current Living Situation Comment: Other Information That Helps Us Care for You: No Feels Safe at Home: Yes Safety Concerns: Feels Safe At This Time Assistive Devices: Glasses Review of Systems Review of Systems: All systems reviewed & are unremarkable except as noted in HPI & below Physical Exam Constitutional: WD/WN, vitals as above + obese, cooperative and comfortable; not in distress Eyes: PERRL, conjunctivae normal, anicteric sclerae ENMT: Ears: no hearing impairment Neck: trachea midline Respiratory: normal respiratory effort, lungs clear to auscultation Cardiovascular: Rate/Rhythm: regular rate and regular rhythm Vessels: femoral pulses present, posterior tibial pulses present, dorsalis pedis pulses present and radial pulses present; no carotid bruit Extremities: normal capillary refill Gastrointestinal (Abdomen): normal bowel sounds, soft, nontender, no hepatosplenomegaly Musculoskeletal: no cyanosis or clubbing, extremities motor strength 5/5 Skin: no rashes, warm and dry Neurologic: moves all extremities and awake; no focal motor deficits and not confused Psychiatric: A+Ox3, euthymic affect Results & Data ([facility]) Vital Signs (Past 12 Hours) Vital Signs Temp Pulse Resp BP BP Pulse Ox 07/28/20 07:00 36.7 C 82 18 129/77 98 07/28/20 02:50 36.7 C 71 20 118/70 97
--- NOTE | 2020-07-28 18:47 | Hospitalist Progress Note ---
Date of Service July 28, 2020 Assessment & Plan (1) Abdominal pain: Superior mesenteric artery stenosis: -ABD CTA:Approximately 60% stenosis of the proximal superior mesenteric artery. Mild to moderate narrowing of the proximal celiac axis with abnormal configuration. 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 Patent inferior mesenteric artery. No acute process within the abdomen or pelvis on arterial phase exam. 1 cm hypodense left renal lesion. This could reflect a proteinaceous cyst or small solid renal lesion. Renal protocol MRI in 6 months is recommended. -Mesenteric USD:The celiac and superior mesenteric arteries are patent. There are elevated velocities within the proximal superficial mesenteric artery suggesting high-grade stenosis. There is no sonographic evidence of celiac artery stenosis. -MRCP: No biliary ductal dilatation status post cholecystectomy. No common bile duct calculi identified. Unremarkable MRCP although exam mildly compromised by artifact. -Lipid Panel: pending -Appreciate GI, vascular surgery input -No plan for intervention currently -Continue Lipitor--increased to 40 mg daily -Added aspirin 81 mg daily -Needs follow-up with vascular surgery upon discharge Left renal lesion Incidental finding on CT as above Needs renal MRI in 6 months Acute renal failure: Cr:1.5>1.1 Received IV fluids Hold losartan for now Chronic nausea Had multiple GI studies in the past Appreciate GI input Tolerating diet currently Hypokalemia Hypomagnesemia Replace electrolytes as needed Monitor Code Status Full code Disposition: PT OT eval prior to discharge Admission and Anticipated Discharge Date Admission Date: July 25, 2020 Subjective Patient is seen and examined at bedside Abdominal pain much improved Tolerating diet States having transient dizziness earlier today which resolved Denies chest pain, dyspnea, diarrhea Offers no other complaints Updated patient's family over the phone Review of Systems Review of Systems: All systems reviewed & are unremarkable except as noted in HPI & below Physical Exam Physical Exam: Physical Exam: Vitals signs as noted above General Appearance:Moderately built and nourished, no apparent distress Head: normocephalic, Atraumatic Eyes: normal inspection, EOMI Neck: supple, Trachea midline Respiratory/Chest: Normal breath sounds, CTA Cardiovascular: S1, S2, No murmur Abdomen/GI:Soft, Mild tender, Bowel sounds present Extremities/Musculoskeletal:normal inspection, no edema Neurologic/Psych:AAOX3, grossly no focal neurological deficits Skin: normal color, warm Results & Data Results & Data ([facility]) Vital Signs (Past 12 Hours) Vital Signs Temp Pulse Resp BP Pulse Ox 07/28/20 15:09 36.8 C 121 H 18 139/86 97 07/28/20 07:00 36.7 C 82 18 129/77 98 Laboratory Results BMP 07/28/20 07:19 Sodium 143 Potassium 2.8 L D Chloride 106 Carbon Dioxide 29 BUN 13 Creatinine 1.11 Glucose 130 H Calcium 9.8
[2020-07-28] MEDS: MIRTAZAPINE TAB 15 MG TAB PO SCH (20:24)
[2020-07-28] MEDS ORDERED: ATORVASTATIN 40 MG TAB PO SCH (21:00)
[2020-07-29 05:37] LABS: Hematocrit (blood only) 38.1 % (37-47); Hemoglobin 12.9 g/dL (12.0-16.0); Mean Corpuscular Hemoglobin 29.7 pg (25-34); Mean Corpuscular Hgb Conc 33.9 g/dL (32-36); Mean Corpuscular Volume 87.8 fL (80-100); Platelet Count 293 K/uL (130-400); RDW Coefficient of Variation 12.1 % (11.5-14.5); RDW Standard Deviation 38.9 fL (36.4-46.3); Red Blood Count 4.34 M/uL (4.2-5.4); White Blood Count 7.16 K/uL (4.8-10.8)
[2020-07-29 06:17] LABS: BUN Creatinine Ratio 14.1 (10-20); Calcium 9.2 mg/dl (8.5-10.1); Creatinine Clr Calc Pharmacy 40.5 ml/min; Est GFR (African American) 60.7; Est GFR (Non-African American) 52.4; Magnesium 1.9 mg/dl (1.8-2.4); Potassium 3.6 mmol/L (3.5-5.1)
[2020-07-29] MEDS: amLODIPine BESYLATE 5 MG TAB PO SCH (08:22)
[2020-07-29] MEDS: NYSTATIN/TRIAMCIN CR 15 GM TUBE EXT SCH (08:22)
[2020-07-29] MEDS: CYANOCOBALAMIN 500 MCG TABLET (VITAMIN B-12) PO SCH (08:22)
[2020-07-29] MEDS: FAMOTIDINE 40 MG TABLET PO SCH (08:22)
[2020-07-29] MEDS: METOCLOPRAMIDE HCL 5 MG TABLET PO SCH ×2 (08:22→12:04)
[2020-07-29] MEDS ORDERED: ASPIRIN 81 MG ECTAB PO SCH (09:00)
--- NOTE | 2020-07-29 10:44 | Gastroenterology Progress Note ---
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 dementia, depression. Recommend OP vascular surgery claire (Phil). Will pursue OP pain management referral to consider Celiac Nerve block which may improve abd pain. Continue low dose metoclopramide, Zofran and Phenergan prn nausea. Continue Remeron 15mg QHS. OK with DC from a GI standpoint. Admission and Anticipated Discharge Date Admission Date: July 25, 2020 Subjective 79 yr old female admitted for chronic abd pain, nausea, weight loss. Imaging suggestive of 60% stenosis of the SMA and of MALS (median accruciate ligament syndrome). Today up walking in the room, chatting with roommate, when asked reports, "not the best day," has lower abd discomfort though reports that epigastric discomfort is the main problem. Has some nausea. Overall "better," than prior to admission. Slept fairly well - doesn't recall if wakened last night. Review of Systems Review of Systems: ROS: Gen: Denies weakness, fevers, weight loss Eyes: No eye redness, or pain, no recent vision changes Resp: No SOB, no cough Cardio: No palpitations/irregular beats, no chest pain GI: See HPI, otherwise (-) : Denies pain on urination Skin: No jaundice, itching or new rashes Physical Exam Constitutional: WD/WN, vitals as above + overweight (mildly) Eyes: PERRL, conjunctivae normal, anicteric sclerae ENMT: external ear and nose normal, oropharynx normal Neck: trachea midline, no thyromegaly Respiratory: normal respiratory effort, lungs clear to auscultation Cardiovascular: RRR, no murmur, no edema Gastrointestinal (Abdomen): normal bowel sounds, soft, nontender, no hepatosplenomegaly Inspection/Auscultation: abdomen normal to inspection; abdomen not distended Percussion/Palpation: + abdomen tender (diffuse upper abd discomfort) and abdomen soft Musculoskeletal: no cyanosis or clubbing, extremities motor strength 5/5 Skin: no rashes, warm and dry Neurologic: PERRL, EOMI, accommodation nl, no face palsy, no dysarthria Psychiatric: Orientation: alert and oriented x 3 Motor Behavior: + tremor Affect: + labile affect Lymphatic: no cervical or axillary lymphadenopathy Results & Data ([facility]) Vital Signs (Past 12 Hours) Vital Signs Temp Pulse Resp BP BP Pulse Ox 07/29/20 07:35 37.1 C 82 18 121/75 97 07/29/20 00:23 36.7 C 72 16 124/76 95 Laboratory Results Normal CBC, CMP today except mildly elevated glucose Diagnostic Findings CTA abd/pelvis on 07/28/20: 1. Approximately 60% stenosis of the proximal superior mesenteric artery. Mild to moderate narrowing of the proximal celiac axis with abnormal configuration. 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 Patent inferior mesenteric artery. 2. No acute process within the abdomen or pelvis on arterial phase exam. 3. 1 cm hypodense left renal lesion. This could reflect a proteinaceous cyst or small solid renal lesion. Renal protocol MRI in 6 months is recommended. 4. 8 mm left renal calculus.
--- NOTE | 2020-07-29 12:59 | Hospitalist Progress Note ---
Date of Service July 29, 2020 Assessment & Plan (1) Abdominal pain: Superior mesenteric artery stenosis: -ABD CTA:Approximately 60% stenosis of the proximal superior mesenteric artery. Mild to moderate narrowing of the proximal celiac axis with abnormal configuration. 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 Patent inferior mesenteric artery. No acute process within the abdomen or pelvis on arterial phase exam. 1 cm hypodense left renal lesion. This could reflect a proteinaceous cyst or small solid renal lesion. Renal protocol MRI in 6 months is recommended. -Mesenteric USD:The celiac and superior mesenteric arteries are patent. There are elevated velocities within the proximal superficial mesenteric artery suggesting high-grade stenosis. There is no sonographic evidence of celiac artery stenosis. -MRCP: No biliary ductal dilatation status post cholecystectomy. No common bile duct calculi identified. Unremarkable MRCP although exam mildly compromised by artifact. -Appreciate GI, vascular surgery input -No plan for intervention currently -Continue Lipitor--increased to 40 mg daily -Continue Aspirin 81 mg daily -Continue metoclopramide, Zofran as needed -Continue Remeron 15 mg at bedtime -Needs follow-up with vascular surgery upon discharge -Needs follow up with GI for possible celiac nerve block as outpatient Left renal lesion Incidental finding on CT as above Needs renal MRI in 6 months Acute renal failure: Cr:1.5>1.1 Received IV fluids Hold losartan for now Chronic nausea Had multiple GI studies in the past Appreciate GI input Tolerating diet currently Hypokalemia Hypomagnesemia Replace electrolytes as needed Monitor Code Status Full code Disposition: PT OT eval prior to discharge Admission and Anticipated Discharge Date Admission Date: July 25, 2020 Subjective Patient is seen and examined at bedside Nausea, abdominal pain much improved Denies any vomiting today Tolerating diet Denies chest pain, dyspnea, diarrhea No new complaints Review of Systems Review of Systems: All systems reviewed & are unremarkable except as noted in HPI & below Physical Exam Physical Exam: Physical Exam: Vitals signs as noted above General Appearance:Moderately built and nourished, no apparent distress Head: normocephalic, Atraumatic Eyes: normal inspection, EOMI Neck: supple, Trachea midline Respiratory/Chest: Normal breath sounds, CTA Cardiovascular: S1, S2, No murmur Abdomen/GI:Soft, non tender, Bowel sounds present Extremities/Musculoskeletal:normal inspection, no edema Neurologic/Psych:AAOX3, grossly no focal neurological deficits Skin: normal color, warm Results & Data Results & Data ([facility]) Vital Signs (Past 12 Hours) Vital Signs Temp Pulse Resp BP Pulse Ox 07/29/20 07:35 37.1 C 82 18 121/75 97 Laboratory Results Short CBC 07/29/20 Range/Units 05:22 WBC 7.16 (4.8-10.8) K/uL Hgb 12.9 (12.0-16.0) g/dL Hct 38.1 (37-47) % Plt Count 293 (130-400) K/uL BMP 07/29/20 05:22 Sodium 141 Potassium 3.6 D Chloride 107 Carbon Dioxide 28 BUN 15 Creatinine 1.03 Glucose 134 H Calcium 9.2
--- NOTE | 2020-07-29 13:10 | Discharge Summary ---
Date of Service July 29, 2020 Admission HPI Per Admitting Provider This is a 79-year-old female, presented to ER, she has been experiencing abdominal distention, nausea, poor appetite, early satiety since June 22, Seen by [facility], patient had a gastric emptying study last year February, Had EGD and CT abdomen pelvis as an outpatient, no significant pathology was found. Started on Reglan as prokinetics., Reports she could not have a complete meal since last 2 months, She will be able to have few bites of toast in the morning, her abdominal discomfort will continue so much that she will not be able to have any lunch, did not had any vomiting but persistent nausea and dry heaving No diarrhea, had intermittent constipation. No blood in stool, Appetite is extremely poor, no fever or chills. In the ER she noted to have low potassium magnesium, Patient is very anxious, worried about her ongoing issue, with no definite diagnosis. Will be admitted to the floor, will order for clear liquid diet, advance as tolerated Her electrolytes will be replaced [facility] consulted Admission Exam Per Admitting Provider Physical Exam Physical Exam: Physical exam: General: No acute distress, alert awake oriented x3 HEENT: PERRLA, EOMI, Heart: Regular S1-S2, no carotid bruit, no JVD, no lower extremity edema Lungs: Clear to auscultate, no wheeze or rales Abdomen: Soft some tenderness in epigastric area, normal bowel sound Extremity: No cyanosis, no deformity, normal strength 5 out of 5 with upper and lower Neuro: No focal neurological deficit normal speech, normal visual field, Motor strength : normal both upper and lower extremity, sensation intact Psych: Alert awake oriented x3, normal affect Principal Diagnosis Superior mesenteric artery stenosis Left Kidney lesion Acute kidney Injury--Resolved Discharge Data Allergies Allergy/AdvReac Type Severity Reaction Status Date / Time omeprazole Allergy Unknown GI SYMPTOMS Verified 07/25/20 15:40 Consultations 07/25/20 17:18 ED Decision to Admit Stat 07/26/20 11:59 Consult Gastroenterology Routine 07/27/20 15:07 Consult Vascular Surgery Routine Procedures Performed -ABD CTA:Approximately 60% stenosis of the proximal superior mesenteric artery. Mild to moderate narrowing of the proximal celiac axis with abnormal configuration. 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 Patent inferior mesenteric artery. No acute process within the abdomen or pelvis on arterial phase exam. 1 cm hypodense left renal lesion. This could reflect a proteinaceous cyst or small solid renal lesion. Renal protocol MRI in 6 months is recommended. -Mesenteric USD:The celiac and superior mesenteric arteries are patent. There are elevated velocities within the proximal superficial mesenteric artery suggesting high-grade stenosis. There is no sonographic evidence of celiac artery stenosis. -MRCP: No biliary ductal dilatation status post cholecystectomy. No common bile duct calculi identified. Unremarkable MRCP although exam mildly compromised by artifact. Ordered Studies 07/26/20 15:15 MRI MRCP [MR MRCP] Routine 07/27/20 11:00 US duplex mesenteric Routine 07/28/20 09:00 CT angio abdomen pelvis w con Routine Hospital Course (1) Abdominal pain: Superior mesenteric artery stenosis: -ABD CTA:Approximately 60% stenosis of the proximal superior mesenteric artery. Mild to moderate narrowing of the proximal celiac axis with abnormal configuration. 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 Patent inferior mesenteric artery. No acute process within the abdomen or pelvis on arterial phase exam. 1 cm hypodense left renal lesion. This could reflect a proteinaceous cyst or small solid renal lesion. Renal protocol MRI in 6 months is recommended. -Mesenteric USD:The celiac and superior mesenteric arteries are patent. There are elevated velocities within the proximal superficial mesenteric artery suggesting high-grade stenosis. There is no sonographic evidence of celiac artery stenosis. -MRCP: No biliary ductal dilatation status post cholecystectomy. No common bile duct calculi identified. Unremarkable MRCP although exam mildly compromised by artifact. -Appreciate GI, vascular surgery input -No plan for intervention currently -Continue Lipitor--increased to 40 mg daily -Continue Aspirin 81 mg daily -Continue metoclopramide, Zofran as needed -Continue Remeron 15 mg at bedtime -Needs follow-up with vascular surgery upon discharge -Needs follow up with GI for possible celiac nerve block as outpatient Left renal lesion Incidental finding on CT as above Needs renal MRI in 6 months Acute renal failure: Cr:1.5>1.1 Received IV fluids Hold losartan for now Chronic nausea Had multiple GI studies in the past Appreciate GI input Tolerating diet currently Hypokalemia Hypomagnesemia Replace electrolytes as needed Monitor Code Status Full code Disposition: PT OT eval prior to discharge Total Time Total Time Spent Total Time Spent (In Minutes): 41 minutes Total Time Includes: Examination of the Patient, Discharge Planning, Medication Reconciliation, Communication With Other Providers and Other Discharge Plan Discharge Items Patient Disposition: Home - Self-Care Reason For Visit: FATIGUE/GI SYMPTOMS, ELECTROLYTE IMBALANCE Discharge Diagnosis: Superior mesenteric artery stenosis Left Kidney lesion Acute kidney Injury--Resolved Activity: Per Instructions section Exercise/Sports: Gradually increase as tolerated Non-emergency contact: Primary Care Provider, Surgeon and Senior Controller Call non-emergency contact if: you have any medication questions, your symptoms worsen, your pain is concerning for you and you have a fever Follow-up/Referrals: Sanket Chandler MD [Primary Care Provider] - Diet: Carb Consistent or DM2 and Heart Healthy Add Attending Provider Instructions: Follow-up with your primary care physician Dr. Chandler in 1 week Follow-up with your disabilities caregiver Dr. Paniagua as recommended for possible celiac nerve block injection Follow-up with your vascular surgeon Dr. Martell in 6 months with repeat mesenteric ultrasound You were noted to have 1 cm left kidney lesion--incidentally on CAT scan. Recommend renal MRI in 6 months. Follow-up with your family physician for further recommendations. Seek immediate medical attention if your symptoms reoccur or worsen Please take all medications as instructed on discharge list below. Please call if you have any questions or problems. You can reach a [facility] hospitalist on duty at [facility] 24 hours a day by calling [phone] [facility] [employer] Provider Instructions: Do not take group of medications belonging to NSAIDs group -can cause worsening of your kidney function. List Of these medications includes but not limited to: Aspirin Diclofenac Ibuprofen, Motrin, Advil Toradol,ketorolac Naproxen, Aleve, Naprosyn You can take Tylenol as needed for pain or fever When buying [id number] pain medications please consult with pharmacy if you are not sure regarding ingredients, as a lot of the pain medications have combination of NSAIDs and Tylenol. Pending Studies at Discharge: No Stand-Alone Forms: My [facility], Smoking Cessation Medications and DC Order Prescriptions: New atorvastatin 40 mg Tablet 40 mg PO HS 30 Days Qty: 30 RF: 1 aspirin 81 mg Tablet,Delayed Release (Dr/Ec) 81 mg PO QAM 30 Days Qty: 30 RF: 2 mirtazapine 15 mg Tablet 15 mg PO HS 30 Days Qty: 30 RF: 1 ondansetron HCl 8 mg tablet 8 mg PO Q8H PRN (Reason: Nausea) Qty: 30 RF: 0 Continued famotidine 40 mg tablet 40 mg PO BIDM RF: 0 fexofenadine 180 mg Tablet 180 mg PO DAILY PRN (Reason: Allergy Symptoms) RF: 0 amlodipine 10 mg tablet 10 mg PO QAM RF: 0 dicyclomine 10 mg capsule 10 mg PO QID PRN (Reason: Nausea) RF: 0 glipizide 5 mg tablet extended release 24hr 5 mg PO QAM RF: 0 tramadol 50 mg tablet 50 mg PO Q6H PRN (Reason: Pain) RF: 0 acetaminophen [Tylenol Extra Strength] 500 mg Tablet 1,000 mg PO BID PRN (Reason: Pain) RF: 0 triamcinolone acetonide 0.1 % Cream 1 applic TOPICAL BID PRN (Reason: skin condition) RF: 0 metoclopramide HCl 5 mg tablet 5 mg PO AC RF: 0 meclizine 25 mg tablet 25 mg PO TID PRN (Reason: Vertigo) RF: 0 nystatin-triamcinolone 100,000-0.1 unit/g-% Cream 1 applic TOPICAL UD RF: 0 cyanocobalamin (vitamin B-12) 1,000 mcg Tablet, Sublingual 1,000 mcg SUBLINGUAL QAM RF: 0 ergocalciferol (vitamin D2) [Vitamin D2] 1,250 mcg (50,000 unit) capsule 50,000 unit PO Q14D RF: 0 losartan 100 mg tablet 100 mg PO QAM RF: 0 fluticasone propionate 50 mcg/actuation spray,suspension 2 spray INTRANASAL QAM PRN (Reason: Congestion) RF: 0 Discontinued atorvastatin 20 mg tablet 20 mg PO HS RF: 0 Discharge Orders: Discharge Order (Routine); Ordered 07/29/20 Ordered By: Luis De La Fuente Admission Data Admit Date/Time: 07/25/20 17:31 Attending Provider: Luis De La Fuente Admit Provider: Twyla Justin Primary Care Provider: Sanket Chandler Other Providers: Twyla Justin ; Nik Rowe ; Chela Bower ; Tadeo Oakley ; Ofelia Armendariz ; Forrest Sutton ; Torrey Landrum ; John Paniagua ; Abundio Henson ; Misha Porras ; Araceli Vitale ; Summer Avilez ; Ada Mackenzie ; Lisset Roberts ; Elliott Estrada ; Matthew Martell Other Interventions: Discharge Summary Assessment (RN) Last Done: 07/29/20 13:59
== END 2020-07-29 14:31 | disposition home or self-care (01) | DRG 394 ==
LOC: ED 14:54 → SUATTDRO 17:31 → 2W 17:31

== ENCOUNTER 2025-02-06 11:34 | Observation (INO) ==
--- NOTE | 2025-02-06 12:51 | Emergency Department Note ---
History of Present Illness General Chief complaint: Dizziness Stated complaint: DIZZINESS, FALLING Time Seen by Provider: 02/06/25 12:40 History of Present Illness Maximum Pain Intensity: 3 This is an 84-year-old female who presents to the emergency department via private vehicle with complaints "dizziness". Patient notes dizziness, blurred vision, double vision at times predominantly within the left eye. Patient did recently start gabapentin a few weeks ago. Dizziness is associated with headache as well. There is also associated nausea, however this is abated with Zofran patient notes that yesterday dizziness occurred around noontime, causing her to fall and she struck the shoulder. The dizziness symptoms yesterday that caused the fall did not cesar, lasted the entire day. Currently notes double vision and a headache. Home Medications Medication Instructions Recorded Confirmed Type acetaminophen 500 mg tablet 500 - 1,000 mg PO UD PRN Pain 07/25/20 02/06/25 History (Tylenol Extra Strength) losartan 100 mg tablet 100 mg PO QAM 07/25/20 02/06/25 History aspirin 81 mg tablet,delayed 81 mg PO QAM 30 days #30 tabs 07/29/20 02/06/25 Rx release amlodipine 5 mg tablet 5 mg PO QAM 04/21/24 02/06/25 History clopidogrel 75 mg tablet 75 mg PO QAM 04/21/24 02/06/25 History denosumab 60 mg/mL subcutaneous 60 mg subcut Q6MO 04/21/24 02/06/25 History syringe (Prolia) gabapentin 100 mg capsule 300 mg (3 x 100 mg) PO HS #90 caps 01/07/25 02/06/25 Rx diazepam 2 mg tablet 2 mg PO ONCE PRN anxiety #2 tabs 01/19/25 02/06/25 Rx atorvastatin 40 mg tablet 40 mg PO QAM 02/06/25 02/06/25 History cholecalciferol (vitamin D3) 25 25 mcg PO QAM 02/06/25 02/06/25 History mcg (1,000 unit) tablet (Vitamin D3) famotidine 20 mg tablet 20 mg PO QAM 02/06/25 02/06/25 History metformin 500 mg tablet 500 mg PO QDD 02/06/25 02/06/25 History ondansetron HCl 4 mg tablet 4 mg PO Q8 PRN Nausea 02/06/25 02/06/25 History polyethylene glycol 3350 17 17 g PO DAILY PRN Constipation 02/06/25 02/06/25 History gram/dose oral powder (Miralax) tramadol 50 mg tablet 50 mg PO Q8 PRN Pain 02/06/25 02/06/25 History Allergies Allergy/AdvReac Type Severity Reaction Status Date / Time sitagliptin [From Maruv] Allergy Mild Nausea Verified 01/07/25 09:33 omeprazole Allergy Unknown GI SYMPTOMS Verified 01/07/25 09:33 Past Med/Surg History Problem List (Updated 02/07/25 @ 00:03 by Edilberto Andrea PA-C) Abnormal computed tomography angiography of head (Acute) Alteration in vision (Acute) Arm numbness Osteoarthritis Osteoporosis Chronic abdominal pain [employer]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 Abdominal pain (Acute) Hypokalemia (Acute) Hypomagnesemia (Acute) Acute renal insufficiency (Acute) Chronic nausea (Acute) HTN (hypertension) (Chronic) DM (diabetes mellitus) (Chronic) Ambulatory dysfunction (Acute) Dizziness (Acute) Vertigo (Acute 02/04/14) Medical History Hyperlipidemia IBS (irritable bowel syndrome) Surgical History History of total abdominal hysterectomy History of right oophorectomy History of repair of rotator cuff History of cholecystectomy Family History Denies family history of Breast cancer Social History Smoking Status: Never smoker Second Hand Exposure: No; Do You Dip or Chew Tobacco: No; Hx Alcohol Use: No Hx Substance Use: No Preferred Language: [place] Communication Ability: Effective Grease Man Required: No Beliefs That Will Affect Care: None marital status: Current Living Situation: Spouse Current Living Situation Comment: Feels Safe at Home: Yes Assistive Devices: None Review of Systems A total of 10 systems reviewed and were otherwise negative Physical Exam Vital Signs Vital Signs - 24 hr 02/06/25 11:46 02/06/25 12:11 02/06/25 12:11 Temperature 36.6 C Temperature Source Temporal Artery Scan Pulse Rate 70 76 Pulse Rate [Apical] 76 Pulse Rhythm Regular Pulse Rhythm [Apical] Regular Pulse Strength [Apical] Normal Respiratory Rate 18 24 24 Respiratory Effort / Characteristics Non-Labored Spontaneous Non-Labored Spontaneous Respiratory Depth Normal Normal Respiratory Pattern Regular Regular Blood Pressure 137/74 Blood Pressure [Right Arm] 150/78 H Blood Pressure Mean 95 Blood Pressure Mean [Right Arm] 102 Blood Pressure Position Sitting Pulse Oximetry 100 96 96 Oxygen Delivery Method Room Air Room Air Room Air Oxygen Flow Rate Sepsis Recent Fever Within 48 Hours No Sepsis New/Unexplained Change in Mental Status No Sepsis Action Taken by Nursing No Action Required 02/06/25 12:27 02/06/25 12:53 02/06/25 13:00 Temperature Temperature Source Pulse Rate 66 76 Pulse Rate [Apical] Pulse Rhythm Pulse Rhythm [Apical] Pulse Strength [Apical] Respiratory Rate 16 Respiratory Effort / Characteristics Respiratory Depth Respiratory Pattern Blood Pressure 159/87 H Blood Pressure [Right Arm] Blood Pressure Mean 135 Blood Pressure Mean [Right Arm] Blood Pressure Position Pulse Oximetry 98 100 Oxygen Delivery Method Room Air Room Air Oxygen Flow Rate 0 Sepsis Recent Fever Within 48 Hours Sepsis New/Unexplained Change in Mental Status Sepsis Action Taken by Nursing 02/06/25 13:00 02/06/25 14:02 02/06/25 14:30 Temperature Temperature Source Pulse Rate 68 79 72 Pulse Rate [Apical] Pulse Rhythm Pulse Rhythm [Apical] Pulse Strength [Apical] Respiratory Rate 18 16 17 Respiratory Effort / Characteristics Respiratory Depth Respiratory Pattern Blood Pressure 159/87 H 163/83 H 134/74 Blood Pressure [Right Arm] Blood Pressure Mean 135 121 104 Blood Pressure Mean [Right Arm] Blood Pressure Position Pulse Oximetry 99 99 96 Oxygen Delivery Method Room Air Room Air Room Air Oxygen Flow Rate Sepsis Recent Fever Within 48 Hours Sepsis New/Unexplained Change in Mental Status Sepsis Action Taken by Nursing VITAL SIGNS - Vital signs and nursing notes were reviewed. Stable and afebrile. GENERAL -84-year-old female appearing her stated age who is in no acute distress. Communicates well with provider and answers questions appropriately. SKIN - Without rashes. No meningeal or petechial rash. HEAD - NC/AT. EYES - PERRL with EOMI bilaterally. Sclera anicteric. EARS - No deformities of external structures noted on gross examination bilaterally. External auditory canals without discharge or otorrhea. Tympanic membranes pearly newell without retraction or bulging. No fluid or purulent material visualized behind the TM. Handle of malleus, umbo, cone of light, pars tensa/flaccid all easily visualized. NOSE - Midline and without cyanosis. No epistaxis or purulent drainage noted. Septum midline without deviation or septal hematoma noted. MOUTH/OROPHARYNX - Without perioral cyanosis. Buccal mucosa pink and moist and without leukoplakia. Tongue midline with equal elevation of palate bilaterally. No tonsillar hypertrophy, erythema, or exudates noted. Fair dentition noted. NECK - No nuchal rigidity. LUNGS - CTA CARDIAC - RRR ABDOMEN - Abdominal contour normal without pulsations or visible masses. BS normoactive all four quadrants. No tenderness, palpable masses, hepatosplenomegaly, or ascites noted. EXTREMITIES - No clubbing or peripheral cyanosis. +5/5 strength noted in UE/LE bilaterally. NEUROLOGIC - Cranial nerves II through XII grossly intact. PSYCH -alert, oriented and pleasant on exam Course Administered Medications Acetaminophen (Acetaminophen 325 Mg Tab) 650 mg PO Q4H PRN PRN Reason: Pain or Fever Stop: 03/08/25 15:20 Last Admin: 02/06/25 17:54 Dose: 650 mg Documented By: LILLY Atorvastatin Calcium (Atorvastatin 40 Mg Tab) 40 mg PO HS YOUNG Stop: 03/08/25 20:59 Last Admin: 02/06/25 20:07 Dose: 40 mg Documented By: KARYN Enoxaparin Sodium (Enoxaparin Inj 40 Mg/0.4 Ml Syr) 40 mg SQ HS YOUNG Stop: 03/08/25 20:59 Last Admin: 02/06/25 20:07 Dose: 40 mg Documented By: KARYN Discontinued Medications Lorazepam 0.5 mg/ Syringe 0.5 mls @ 2 mls/min IV UD PRN PRN Reason: FOR MRI Last Admin: 02/06/25 22:00 Dose: 2 mls/min Documented By: KARYN Insulin Aspart (Insulin Aspart Per Unit Charge) 0 units SC ACHS YOUNG Stop: 03/08/25 17:25 Last Admin: 02/06/25 18:31 Dose: Not Given Documented By: LILLY Ioversol (Optiray 320 125ml) 112 ml IV ONCE ONE Stop: 02/06/25 13:44 Last Admin: 02/06/25 13:43 Dose: 112 ml Documented By: RONY Lorazepam (Lorazepam 1 Mg Tab) 1 mg PO NOW STA Stop: 02/06/25 15:25 Last Admin: 02/06/25 17:48 Dose: Not Given Documented By: Medical Decision Making Laboratory Data 02/06/25 12:15 02/06/25 12:15 Lab Results 02/06/25 02/06/25 Range/Units 12:15 13:40 WBC 4.60 L (4.8-10.8) K/ul RBC 3.79 L (4.20-5.40) M/uL Hgb 12.2 (12.0-16.0) g/dL Hct 36.0 L (37.0-47.0) % MCV 95.0 (80.0-100.0) fL MCH 32.2 (25.0-34.0) pg MCHC 33.9 (32.0-36.0) g/dL RDW Std Deviation 40.9 (36.4-46.3) fL RDW Coeff of Noah 11.8 (11.5-14.5) % Plt Count 199 (130-400) K/uL MPV 9.8 (9.4-12.4) fL Immature Gran % (Auto) 0.0 % Neut % (Auto) 62.3 % Lymph % (Auto) 25.7 % Piatt % (Auto) 8.7 % Eos % (Auto) 2.2 % Baso % (Auto) 1.1 % Neut # (Auto) 2.87 (1.40-6.50) K/uL Lymph # (Auto) 1.18 L (1.20-3.40) K/uL Piatt # (Auto) 0.40 (0.11-0.59) K/uL Eos # (Auto) 0.10 (0.00-0.50) K/uL Baso # (Auto) 0.05 (0.00-0.20) K/uL Immature Gran # (Auto) 0.00 L (0.01-0.20) K/uL PT 10.6 (9.0-12.0) Seconds INR 1.0 (0.9-1.1) APTT 26 (21-31) Seconds PTT Ratio 1.0 Sodium 140 (136-145) mmol/L Potassium 4.1 (3.5-5.1) mmol/L Chloride 103 (98-107) mmol/L Carbon Dioxide 31 (21-32) mmol/L Anion Gap 6 (3-11) BUN 25 H (6-23) mg/dl Creatinine 0.95 (0.6-1.2) mg/dl Est Cr Clr Drug Dosing 34.5 ml/min eGFR 59.82 BUN/Creatinine Ratio 26.3 H (10-20) Glucose 93 (70-99(Fasting)) mg/dl Calcium 10.0 (8.6-10.3) mg/dl Magnesium 2.4 (1.7-2.4) mg/dl Total Bilirubin 0.6 (0.2-1.0) mg/dl AST 24 (13-39) U/L ALT 19 (7-52) U/L Alkaline Phosphatase 47 (34-104) U/L Troponin I High Sens 3.4 (0-14) pg/ml Total Protein 6.8 (6.0-8.3) gm/dl Albumin 4.7 (3.4-5.0) gm/dl Globulin 2.1 L (2.5-4.0) gm/dl Albumin/Globulin Ratio 2.2 H (0.9-2) TSH 1.387 (0.300-4.500) uIu/ml Urine Color Yellow Urine Appearance Clear (Clear) Urine pH 7.5 (4.5-7.5) Ur Specific [place] 1.010 (1.000-1.030) Urine Protein Negative (Negative) Urine Glucose (UA) Negative (Negative) Urine Ketones Negative (Negative) Urine Blood Negative (Negative) Urine Nitrite Negative (Negative) Urine Bilirubin Negative (Negative) Urine Urobilinogen Negative (Negative) Ur Leukocyte Esterase Trace H (Negative) Urine WBC (Auto) 0-5 (0-5) /hpf Urine RBC (Auto) 0-2 (0-2) /hpf U Hyaline Cast (Auto) 0-2 (0-2) /lpf U Epithel Cells (Auto) 0-2 (0-2) /hpf Urine Bacteria (Auto) None Seen (None Seen) Urine Comment Lyme Disease Screen Negative (Negative) Imaging Data Radiologist's Impression: Head CTA 02/06/25 12:51 CT angio head wo/w CLINICAL HISTORY: 84 years-old Female with diplopia, dizziness, headache. Acute headache with dizziness and double vision COMPARISON STUDY: CTA neck same day TECHNIQUE: Unenhanced axial CT scan of the brain is performed. Subsequently, following the IV administration of 112 cc of Optiray, CT angiogram of the brain was performed from the skull base to the vertex. Images are reviewed in the axial, sagittal, and coronal planes. 3-D MIPS images are created and assessed. IV contrast was administered without complication. All measurements were obtained according to NASCET criteria. A dose lowering technique was utilized adhering to the principles of ALARA. CT DOSE: 1073.98 mGy.cm FINDINGS: CT BRAIN: There is no acute intracranial hemorrhage, midline shift, hydrocephalus, intracranial mass, territorial ischemia or abnormal extra-axial collections. No abnormal intra-axial or extra-axial enhancement. Involutional changes with white matter hypodensities suggestive of chronic microvascular ischemic disease. Ill-defined hypodensity of the pontomedullary brainstem, image 28 series 4. Mastoid air cells and middle ear cavities are clear. No calvarial fracture. Paranasal sinuses are clear. CT ANGIOGRAM OF THE BRAIN: The imaged bilateral internal carotid arteries are patent. The bilateral anterior and middle cerebral arteries are also patent. The vertebrobasilar system and posterior cerebral arteries are widely patent. There is no aneurysm, high-grade stenosis, or proximal branch occlusion identified. Dural sinuses appear patent. IMPRESSION: 1. Ill-defined hypodensity involving the pontomedullary brainstem may be artifactual or represent an age-indeterminate infarct. 2. Unremarkable CTA. ACT 112: Negative or not required by law. The above report was generated using voice recognition software. It may contain grammatical, syntax or spelling errors. Electronically signed by: Sukhjinder Rogers M.D. 02/06/2025 2:36 PM Neck CTA 02/06/25 12:51 CT angio neck with con CLINICAL HISTORY: diplopia, dizziness, headache. TECHNIQUE: Following the IV administration of 112 of Optiray, CT angiogram of the neck was performed from the aortic arch to the skull base. Images are reviewed in the axial, sagittal, and coronal planes. 3-D MIPS images are created and assessed. IV contrast was administered without complication. All measurements were calculated based on NASCET criteria. A dose lowering technique was utilized adhering to the principles of ALARA. CT DOSE: 1074 COMPARISON STUDY: None FINDINGS: There are mild calcifications at the right carotid bulb and distally at the internal carotid arteries. No significant narrowing or occlusion seen at the common or internal carotid or vertebral arteries bilaterally. There are a few thyroid nodules, largest on the right measures 1.5 cm. There are diffuse degenerative changes at the cervical spine. IMPRESSION: No significant arterial narrowing or occlusion seen in the neck. ACT 112: Negative or not required by law. The above report was generated using voice recognition software. It may contain grammatical, syntax or spelling errors. Electronically signed by: Harlan Duong M.D. 02/06/2025 2:24 PM [facility] Narrative Patient was seen and evaluated as above in room A12. Review was performed of nursing notes and vital signs. Patient presents to us today for the above symptoms. I did review pertinent previous visits and patient history. After obtaining a thorough history and physical examination the above work up was performed. The patient has an NIHSS of 1 at the present time, has had symptoms for greater than 24 hours and at this time is not a TNK candidate noting duration of symptoms. Options of care were discussed with the patient. IV access was established. Labs were drawn. EKG was performed. This reveals normal sinus rhythm at a rate of 67 bpm. QTc 433. QRS 90. No ST elevation on this rhythm tracing. There is no leukocytosis or concerning anemia. Coags normal. No evidence of kidney or liver failure emergently. TSH reveals euthyroid state. Troponin within normal range. Urinalysis does not suggest infection. Lyme screen negative. CT Noncon head plus angios head and neck were obtained. Results as above. Neck was clear however the patient does have a finding on the head CT noting an ill-defined hypodensity involving the Pontomedullary brainstem that may be artifactual represent age-indeterminate artifact. At this time I do believe that further evaluation and management in the inpatient setting is warranted. Case discussed with the hospitalist service. Please refer to further documentation regarding her stay. GCS: 15 In the evaluation and treatment of this patient the following differential diagnoses were entertained: CVA, TIA, meningitis, glaucoma, among others Impression & Plan Dizziness, Alteration in vision, Abnormal computed tomography angiography of head Discharge Plan Visit Data Chief Complaint: Dizziness Stated Complaint: DIZZINESS, FALLING ED Provider: Levi Webb ED Midlevel Provider: Edilberto Andrea Discharge Problem: Dizziness, Alteration in vision, Abnormal computed tomography angiography of head Patient Disposition: Admitted As Inpatient Condition: Good Discharge Instructions Interventions: ED Discharge Assessment Last Done: 02/06/25 16:43
[2025-02-06 13:09] LABS: Hematocrit (blood only) 36.0 % (37.0-47.0); Hemoglobin 12.2 g/dL (12.0-16.0); Immature Granulocytes # (auto) 0.00 K/uL (0.01-0.20); Immature Granulocytes % (auto) 0.0 %; Mean Corpuscular Hemoglobin 32.2 pg (25.0-34.0); Mean Corpuscular Volume 95.0 fL (80.0-100.0); Platelet Count 199 K/uL (130-400); RDW Standard Deviation 40.9 fL (36.4-46.3); Red Blood Count 3.79 M/uL (4.20-5.40); White Blood Count 4.60 K/ul (4.8-10.8)
[2025-02-06 13:17] LABS: Alanine Aminotransferase 19.0 U/L (7-52); Albumin Globulin Ratio 2.2 (0.9-2); Albumin Level 4.7 gm/dl (3.4-5.0); Alkaline Phosphatase 47.0 U/L (34-104); Anion Gap 6.0 (3-11); Bilirubin,Total 0.6 mg/dl (0.2-1.0); Blood Urea Nitrogen 25.0 mg/dl (6-23); Calcium 10.0 mg/dl (8.6-10.3); Carbon Dioxide 31.0 mmol/L (21-32); Chloride 103.0 mmol/L (98-107); Creatinine Clr Calc Pharmacy 34.5 ml/min; Globulin 2.1 gm/dl (2.5-4.0); Glucose 93.0 mg/dl (70-99(Fasting)); Magnesium 2.4 mg/dl (1.7-2.4); Potassium 4.1 mmol/L (3.5-5.1); Sodium 140.0 mmol/L (136-145); Total Protein 6.8 gm/dl (6.0-8.3)
[2025-02-06 13:32] LABS: Thyroid Stimulating Hormone 1.387 uIu/ml (0.300-4.500)
[2025-02-06 13:40] LABS: INR 1.0 (0.9-1.1); Partial Thromboplastin Time 26 Seconds (21-31); Prothrombin Time 10.6 Seconds (9.0-12.0)
[2025-02-06] MEDS: OPTIRAY 320 125ml IV ONE (13:43)
[2025-02-06 14:11] LABS: Appearance Urine Clear (Clear); Bacteria Urine Automated None Seen (None Seen); Cast Urine Automated 0-2 /lpf (0-2); Epithelial Cell Urine Auto 0-2 /hpf (0-2); Glucose Urine UA Negative (Negative); RBC Urine Automated 0-2 /hpf (0-2); WBC Urine Automated 0-5 /hpf (0-5)
--- NOTE | 2025-02-06 14:26 | CT Scan Report ---
CT angio neck with con CLINICAL HISTORY: diplopia, dizziness, headache. TECHNIQUE: Following the IV administration of 112 of Optiray, CT angiogram of the neck was performed from the aortic arch to the skull base. Images are reviewed in the axial, sagittal, and coronal plane s. 3-D MIPS images are created and assessed. IV contrast was administered without complication. All m easurements were calculated based on NASCET criteria. A dose lowering technique was utilized adherin g to the principles of ALARA. CT DOSE: 1074 COMPARISON STUDY: None FINDINGS: There are mild calcifications at the right carotid bulb and distally at the internal caroti d arteries. No significant narrowing or occlusion seen at the common or internal carotid or vertebral arteries bilaterally. There are a few thyroid nodules, largest on the right measures 1.5 cm. There a re diffuse degenerative changes at the cervical spine. IMPRESSION: No significant arterial narrowing or occlusion seen in the neck. ACT 112: Negative or not required by law. The above report was generated using voice recognition software. It may contain grammatical, syntax o r spelling errors. Electronically signed by: Harlan Duong M.D. 02/06/2025 2:24 PM
--- NOTE | 2025-02-06 14:38 | CT Scan Report ---
CT angio head wo/w CLINICAL HISTORY: 84 years-old Female with diplopia, dizziness, headache. Acute headache with dizz iness and double vision COMPARISON STUDY: CTA neck same day TECHNIQUE: Unenhanced axial CT scan of the brain is performed. Subsequently, following the IV adminis tration of 112 cc of Optiray, CT angiogram of the brain was performed from the skull base to the vert ex. Images are reviewed in the axial, sagittal, and coronal planes. 3-D MIPS images are created and a ssessed. IV contrast was administered without complication. All measurements were obtained according to NASCET criteria. A dose lowering technique was utilized adhering to the principles of ALARA. CT DOSE: 1073.98 mGy.cm FINDINGS: CT BRAIN: There is no acute intracranial hemorrhage, midline shift, hydrocephalus, intracranial mass, territori al ischemia or abnormal extra-axial collections. No abnormal intra-axial or extra-axial enhancement. Involutional changes with white matter hypodensities suggestive of chronic microvascular ischemic di sease. Ill-defined hypodensity of the pontomedullary brainstem, image 28 series 4. Mastoid air cells and middle ear cavities are clear. No calvarial fracture. Paranasal sinuses are clear. CT ANGIOGRAM OF THE BRAIN: The imaged bilateral internal carotid arteries are patent. The bilateral anterior and middle cerebral arteries are also patent. The vertebrobasilar system and posterior cerebral arteries are widely frost nt. There is no aneurysm, high-grade stenosis, or proximal branch occlusion identified. Dural sinuses appear patent. IMPRESSION: 1. Ill-defined hypodensity involving the pontomedullary brainstem may be artifactual or represent an age-indeterminate infarct. 2. Unremarkable CTA. ACT 112: Negative or not required by law. The above report was generated using voice recognition software. It may contain grammatical, syntax o r spelling errors. Electronically signed by: Sukhjinder Rogers M.D. 02/06/2025 2:36 PM
[2025-02-06] MEDS ORDERED: ONDANSETRON INJ 2 MG/ML 2 ML VIAL IV PRN (15:21)
[2025-02-06] MEDS ORDERED: POLYETHYLENE (MIRALAX) 17 GM PACK PO PRN (15:21)
--- NOTE | 2025-02-06 15:45 | History & Physical Report ---
Date of Service February 06, 2025 Assessment & Plan (1) Dizziness: (2) HTN (hypertension): (3) DM (diabetes mellitus): (4) Mesenteric artery stenosis: Plan This is an 84 year old female with past medical history of osteoporosis, HTN, DM, mesenteric artery stenosis who presented to the ED on 02/06/2025 for dizziness. While in the ED, she underwent a head CT/CTA that did reveal an ill-defined hypodensity involving the pontomedullary brainstem may be artifactual vs age-indeterminate infarct. Neck CTA was negative. CBC was w/o leukocytosis or anemia. BMP had stable renal function & electrolytes. LFTs WNL, trop neg, TSH WNL. UA negative. Lyme negative. #Dizziness Recently started gabapentin 3 weeks ago & has been ongoing for at least the last 2 weeks. Associated w/ blurry/double vision and HEBERT on occasion as well. Head CT/CTA significant for an ill-defined hypodensity involving the pontomedullary brainstem, may be artifact vs age-indeterminate infarct. Neck CTA negative. Brain MRI, Echo pending Hold gabapentin - monitor for symptom improvement. Consider neuro consult based on MRI results Pt already on DAPT - plan to continue. PT/OT consulted, appreciate recommendations. #HTN Hypertensive on admission w/ BP of 163/83 On Amlodipine/Losartan outpatient Continue Amlodipine, Hold Losartan to allow for permissive HTN over next 24- 48hrs in the event dizziness is related to CVA. #Type 2 DM Outpatient regimen includes Metformin - hold No A1c in system. Obtain A1c in AM SSI w/ Novolog, adjust as necessary #Mesenteric artery stenosis - Has had stents placed @ [facility] [place], continue DAPT #Chronic abdominal pain - follows w/ Pain management outpatient for trigger point injects. Zofran prn for N/V. #HLD - Update lipid panel in AM, Continue Statin #GERD - Continue Pepcid DVT prophylaxis: Lovenox Code: full Case was discussed with Dr. Wilkinson at time of admission. updated at bedside 02/06. History of Present Illness Primary Care Provider: Meenakshi Martinez MD This is an 84 year old female with past medical history of osteoporosis, HTN, DM, mesenteric artery stenosis who presented to the ED on 02/06/2025 for dizziness. Ana was seen & examined this afternoon with her present. She reports that 3 weeks ago she started taking gabapentin for pain in her hands. She states that she has been having ongoing dizziness since then. She reports she does notice it on occasion when changes positions but it can also occur randomly. She reports a headache and blurry/double vision as well. reports that she has been complaining of vision changes since at least last week. She has not had any falls secondary to this. She does take ASA/Plavix combo for her mesenteric artery stenosis and has a hx of stents in her abdominal area for this that were placed at [facility] [place]. She denies any CP, SOB. She reports she does feel nauseous and has chronic abdominal pain. She receives trigger point injections through pain management every few months. She denies any changes in her bowel/bladder habits and denies any LE edema. While in the ED, she underwent a head CT/CTA that did reveal an ill-defined hypodensity involving the pontomedullary brainstem may be artifactual vs age- indeterminate infarct. Neck CTA was negative. CBC was w/o leukocytosis or anemia. BMP had stable renal function & electrolytes. LFTs WNL, trop neg, TSH WNL. UA negative. Lyme negative. Code discussion did take place & she does confirm that she is a full code. Allergies Allergy/AdvReac Type Severity Reaction Status Date / Time sitagliptin [From ] Allergy Mild Nausea Verified 01/07/25 09:33 omeprazole Allergy Unknown GI SYMPTOMS Verified 01/07/25 09:33 Home Medications Medication Instructions Recorded Confirmed Type acetaminophen 500 mg tablet 500 - 1,000 mg PO UD PRN Pain 07/25/20 02/06/25 History (Tylenol Extra Strength) losartan 100 mg tablet 100 mg PO QAM 07/25/20 02/06/25 History aspirin 81 mg tablet,delayed 81 mg PO QAM 30 days #30 tabs 07/29/20 02/06/25 Rx release amlodipine 5 mg tablet 5 mg PO QAM 04/21/24 02/06/25 History clopidogrel 75 mg tablet 75 mg PO QAM 04/21/24 02/06/25 History denosumab 60 mg/mL subcutaneous 60 mg subcut Q6MO 04/21/24 02/06/25 History syringe (Prolia) gabapentin 100 mg capsule 300 mg (3 x 100 mg) PO HS #90 caps 01/07/25 02/06/25 Rx diazepam 2 mg tablet 2 mg PO ONCE PRN anxiety #2 tabs 01/19/25 02/06/25 Rx atorvastatin 40 mg tablet 40 mg PO QAM 02/06/25 02/06/25 History cholecalciferol (vitamin D3) 25 25 mcg PO QAM 02/06/25 02/06/25 History mcg (1,000 unit) tablet (Vitamin D3) famotidine 20 mg tablet 20 mg PO QAM 02/06/25 02/06/25 History metformin 500 mg tablet 500 mg PO QDD 02/06/25 02/06/25 History ondansetron HCl 4 mg tablet 4 mg PO Q8 PRN Nausea 02/06/25 02/06/25 History polyethylene glycol 3350 17 17 g PO DAILY PRN Constipation 02/06/25 02/06/25 History gram/dose oral powder (Miralax) tramadol 50 mg tablet 50 mg PO Q8 PRN Pain 02/06/25 02/06/25 History Past Med/Surg History Problem List Arm numbness Osteoarthritis Osteoporosis Chronic abdominal pain 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 Abdominal pain (Acute) Hypokalemia (Acute) Hypomagnesemia (Acute) Acute renal insufficiency (Acute) Chronic nausea (Acute) HTN (hypertension) (Chronic) DM (diabetes mellitus) (Chronic) Ambulatory dysfunction (Acute) Dizziness (Acute) Vertigo (Acute 02/04/14) Medical History Hyperlipidemia IBS (irritable bowel syndrome) Surgical History History of total abdominal hysterectomy History of right oophorectomy History of repair of rotator cuff History of cholecystectomy Family History Denies family history of Breast cancer Social History Smoking Status: Never smoker Do You Dip or Chew Tobacco: No; Hx Alcohol Use: No Hx Substance Use: No Preferred Language: Luxembourger Communication Ability: Effective Senior Mobile Web Developer Required: No Beliefs That Will Affect Care: None marital status: Current Living Situation: Spouse Current Living Situation Comment: Feels Safe at Home: Yes Assistive Devices: None Physical Exam Physical Exam: General: NAD, VS: BP 163/83; P79; R16; T36.6C Resp: normal respiratory effort, lungs clear to auscultation CV: RRR, no murmur Abd: normal bowel sounds, tenderness to palpation to lower abdomen, soft Extremities: Moves all extremities, no edema Neuro: A&O x3, strength/sensation intact 5/5 extremities. Visual whiteside intact. Negative pronator drift. Skin: intact, no lesions noted Results & Data Results & Data Vital Signs (Past 12 Hours) Vital Signs Temp Pulse Pulse Resp BP BP Pulse Ox 02/06/25 14:02 79 16 163/83 H 99 02/06/25 13:00 68 18 159/87 H 99 02/06/25 13:00 76 16 159/87 H 100 02/06/25 12:53 98 02/06/25 12:27 66 02/06/25 12:11 76 24 96 02/06/25 12:11 76 24 150/78 H 96 02/06/25 11:46 36.6 C 70 18 137/74 100 O2 Del Method O2 Flow Rate 02/06/25 14:02 Room Air 02/06/25 13:00 Room Air 02/06/25 13:00 Room Air 02/06/25 12:53 Room Air 0 02/06/25 12:27 02/06/25 12:11 Room Air 02/06/25 12:11 Room Air 02/06/25 11:46 Room Air Supervising Physician Co-Signing Physician Notes The patient was seen by me. The chart was reviewed. Case discussed with KHLOE Barraza. Agree with assessment and plan PG Care Time/CCT Total # of Minutes Spent Total Time Spent with Patient: Total time spent is greater than 50% in coordination of care (as documented) at patient's floor/unit and/or counseling patient: Coding Level of Care Code 69350 INT INP/OBS CARE 3/75MIN Diagnoses Dizziness R42 HTN (hypertension) I10 DM (diabetes mellitus) E11.9 Mesenteric artery stenosis K55.1
[2025-02-06] MEDS ORDERED: LORazepam Inj 0.5 MG in SYRINGE 0.25 ML IV STA (16:29)
[2025-02-06] MEDS ORDERED: LORazepam 1 MG/1 ML SYR ED Inj Use IV ONE (16:45)
[2025-02-06] MEDS ORDERED: GLUCOSE 40% GEL 15 GM TUBE PO PRN (17:45)
[2025-02-06] MEDS ORDERED: DEXTROSE 50% 50 ML SYRINGE IV PRN (17:45)
[2025-02-06] MEDS ORDERED: GLUCOSE 10 TAB/TUBE PO PRN (17:45)
[2025-02-06] MEDS ORDERED: GLUCAGON FOR INJ 1 MG VIAL SQ PRN (17:45)
[2025-02-06] MEDS ORDERED: CARBOHYDRATES FOR HYPOGLYCEMIA PO PRN (17:45)
[2025-02-06] MEDS: LORazepam 1 MG TAB PO STA (17:48)
[2025-02-06] MEDS: ACETAMINOPHEN 325 MG TAB PO PRN (17:54)
[2025-02-06] MEDS: INSULIN ASPART PER UNIT CHARGE SC SCH (18:31)
[2025-02-06] MEDS: ATORVASTATIN 40 MG TAB PO SCH (20:07)
[2025-02-06] MEDS: ENOXAPARIN INJ 40 MG/0.4 ML SYR SQ SCH (20:07)
[2025-02-06] MEDS ORDERED: Nursing to Pharmacy Communication SCH (20:15)
[2025-02-06] MEDS: LORazepam Inj 0.5 MG in SYRINGE 0.25 ML IV PRN (22:00)
[2025-02-07] MEDS: INSULIN ASPART PER UNIT CHARGE SC SCH ×2 (00:57→18:02)
--- NOTE | 2025-02-07 02:05 | Magnetic Resonance Report ---
Exam(s): MRI HEAD Without Contrast EXAM: MR Head Without Intravenous Contrast CLINICAL HISTORY: Reason for exam: stroke like symptoms. OTHER: Other Notes: stroke symptoms vision loss episode today occipital headache rule out cva TECHNIQUE: Magnetic resonance images of the head/brain without intravenous contrast in multiple planes. COMPARISON: Prior head CT from February 06, 2025. FINDINGS: Brain: Unremarkable. No mass. No hemorrhage. No acute infarct. The flow voids at the base the brain are intact. Ventricles: Unremarkable. No ventriculomegaly. Bones/joints: Unremarkable. No acute fracture. Sinuses: Chronic ethmoid sinusitis. No acute sinusitis. Mastoid air cells: Unremarkable as visualized. No mastoid effusion. Orbits: Bilateral lens replacements. IMPRESSION: No evidence of acute intracranial pathology. Electronically signed by: Louise Santos MD 02/07/25 02:04 AM
[2025-02-07 06:38] LABS: Hematocrit (blood only) 36.7 % (37.0-47.0); Hemoglobin 12.5 g/dL (12.0-16.0); Mean Corpuscular Hemoglobin 32.1 pg (25.0-34.0); Mean Corpuscular Volume 94.1 fL (80.0-100.0); Platelet Count 195 K/uL (130-400); RDW Standard Deviation 40.0 fL (36.4-46.3); Red Blood Count 3.90 M/uL (4.20-5.40); White Blood Count 4.16 K/ul (4.8-10.8)
[2025-02-07 07:15] LABS: Anion Gap 7.0 (3-11); Blood Urea Nitrogen 20.0 mg/dl (6-23); Calcium 9.7 mg/dl (8.6-10.3); Carbon Dioxide 29.0 mmol/L (21-32); Chloride 104.0 mmol/L (98-107); Cholesterol 135.0 mg/dl (0-200); Creatinine Clr Calc Pharmacy 38.1 ml/min; Glucose 104.0 mg/dl (70-99(Fasting)); HDL Cholesterol 75.0 mg/dl; Potassium 4.0 mmol/L (3.5-5.1); Sodium 140.0 mmol/L (136-145); Triglycerides 109.0 mg/dl (0-150)
[2025-02-07 07:29] LABS: Hemoglobin A1C 6.4 % (4.5-5.6)
--- NOTE | 2025-02-07 08:30 | Electrocardiogram Report ---
Test Reason : Blood Pressure : */* mmHG Vent. Rate : 67 BPM Atrial Rate : 67 BPM P-R Int : 156 ms QRS Dur : 90 ms QT Int : 410 ms P-R-T Axes : 70 -55 70 degrees QTcB Int : 433 ms Normal sinus rhythm Left axis deviation Minimal voltage criteria for LVH, may be normal variant ( Terrance product ) Abnormal ECG When compared with ECG of 16-Apr-2024 11:17, No significant change was found Confirmed by Bryn Spaulding ([id number]) on 02/07/2025 8:29:52 AM Referred By: REFERRED SELF Confirmed By: Bryn Spaulding
[2025-02-07] MEDS: CHOLECALCIFEROL 25 MCG (1000 UNITS) TAB PO SCH (08:42)
[2025-02-07] MEDS: CLOPIDOGREL BISULFATE 75 MG TAB PO SCH (08:43)
[2025-02-07] MEDS: ASPIRIN 81 MG ECTAB PO SCH (08:43)
[2025-02-07] MEDS: FAMOTIDINE 20 MG TAB PO SCH (09:34)
[2025-02-07] MEDS: LACTATED RINGER'S 1,000 ML IV SCH (10:36)
--- NOTE | 2025-02-07 13:09 | Hospitalist Progress Note ---
Date of Service February 07, 2025 Assessment & Plan (1) Dizziness: (2) HTN (hypertension): (3) DM (diabetes mellitus): (4) Mesenteric artery stenosis: Plan This is an 84 year old female with past medical history of osteoporosis, HTN, DM, mesenteric artery stenosis who presented to the ED on 02/06/2025 for dizziness. While in the ED, she underwent a head CT/CTA that did reveal an ill-defined hypodensity involving the pontomedullary brainstem may be artifactual vs age-indeterminate infarct. Neck CTA was negative. CBC was w/o leukocytosis or anemia. BMP had stable renal function & electrolytes. LFTs WNL, trop neg, TSH WNL. UA negative. Lyme negative. #Dizziness Recently started gabapentin 3 weeks ago & has been ongoing for at least the last 2 weeks. Associated w/ blurry/double vision and HEBERT on occasion as well. Head CT/CTA significant for an ill-defined hypodensity involving the pontomedullary brainstem, may be artifact vs age-indeterminate infarct. Neck CTA negative. Brain MRI negative Echo: EF 55-60%; no interatrial shunt. Hold gabapentin - monitor for symptom improvement. Orthostatic VS obtained 02/07 --> + --> sitting BP 144/79 to standing 125/82, hold amlodipine. 2L of IVF ordered. Repeat in AM. Pt already on DAPT - plan to continue. PT/OT consulted, appreciate recommendations. #HTN Amlodipine/Losartan on hold secondary to orthostatic VS. #Type 2 DM Outpatient regimen includes Metformin - hold No A1c in system. Obtain A1c in AM SSI w/ Novolog, adjust as necessary #Mesenteric artery stenosis - Has had stents placed @ [facility] [place], continue DAPT #Chronic abdominal pain - follows w/ Pain management outpatient for trigger point injects. Zofran prn for N/V. #HLD - Update lipid panel in AM, Continue Statin #GERD - Continue Pepcid DVT prophylaxis: Lovenox Code: full /daughter updated at bedside 02/07. Admission and Anticipated Discharge Date Admission Date: February 06, 2025 Supervising Physician Co-Signing Physician Notes The patient was not seen by me. The chart was reviewed. Case discussed with KHLOE Barraza. Agree with assessment and plan Starla Perez was seen & examined this afternoon. She reports that she still feels dizzy today. She also reports that she feels "sweaty". Denies any HEBERT, reports vision issues still ongoing intermittently. Physical Exam Physical Exam: General: NAD, VS: BP 147/74; P102; R16; T37.4C Resp: normal respiratory effort, lungs clear to auscultation CV: RRR, no murmur Extremities: no edema Neuro: A&O x3 Skin: intact, no lesions noted Results & Data Results & Data Vital Signs (Past 12 Hours) Vital Signs Temp Pulse Pulse Resp BP Pulse Ox O2 Del Method 02/07/25 12:37 37.4 C 82 16 147/74 H 97 Room Air 02/07/25 08:09 36.9 C 71 18 135/73 99 Room Air 02/07/25 08:00 70 02/07/25 02:56 36.9 C 76 20 114/69 92 Room Air PG Care Time/CCT Total # of Minutes Spent Total Time Spent with Patient: Total time spent is greater than 50% in coordination of care (as documented) at patient's floor/unit and/or counseling patient: Coding Level of Care Code 53147 SUB INP/OBS CARE 2/35MIN Diagnoses Dizziness R42 HTN (hypertension) I10 DM (diabetes mellitus) E11.9 Mesenteric artery stenosis K55.1
--- NOTE | 2025-02-07 13:11 | XCELERA ---
[id number] [id number]
[2025-02-08 03:44] VITALS: BP 131/75
[2025-02-08 06:27] LABS: Anion Gap 10.0 (3-11); Blood Urea Nitrogen 17.0 mg/dl (6-23); Calcium 9.2 mg/dl (8.6-10.3); Carbon Dioxide 25.0 mmol/L (21-32); Chloride 102.0 mmol/L (98-107); Creatinine Clr Calc Pharmacy 47.4 ml/min; Glucose 133.0 mg/dl (70-99(Fasting)); Magnesium 1.9 mg/dl (1.7-2.4); Potassium 3.5 mmol/L (3.5-5.1); Sodium 137.0 mmol/L (136-145)
[2025-02-08 07:56] VITALS: PULSE 80; RESP 17; TEMP 98.8; O2SAT 100
--- NOTE | 2025-02-08 11:00 | Discharge Summary ---
Discharge Summary Date of Service February 08, 2025 Principal Dx & Hospital Course #1 = Principal Diagnosis (1) Dizziness: (2) HTN (hypertension): (3) DM (diabetes mellitus): (4) Mesenteric artery stenosis: Plan This is an 84 year old female with past medical history of osteoporosis, HTN, DM, mesenteric artery stenosis who presented to the ED on 02/06/2025 for dizziness. #Dizziness Recently started gabapentin 3 weeks ago & has been ongoing for at least the last 2 weeks. Associated w/ blurry/double vision and HEBERT on occasion as well. Head CT/CTA significant for an ill-defined hypodensity involving the pontomedullary brainstem, may be artifact vs age-indeterminate infarct; Neck CTA negative. Brain MRI negative Echo: EF 55-60%; no interatrial shunt. Orthostatic VS now stable after IVF + holding anti-hypertensives --> recommend holding Amlodipine + Losartan until seen by PCP. Discontinue Gabapentin. Pt already on DAPT - plan to continue. PT/OT consulted--> okay for discharge home w/ rolling walker secondary to ambulatory dysfunction to increase safety. #HTN - hold home meds as above. #Type 2 DM Outpatient regimen includes Metformin that she has not started yet - recommend discussion w/ PCP prior to starting at upcoming appointment. #Mesenteric artery stenosis - Has had stents placed @ [facility] [place], continue DAPT #Chronic abdominal pain - follows w/ Pain management outpatient for trigger point injects. Zofran prn for N/V. #HLD - Update lipid panel in AM, Continue Statin #GERD - Continue Pepcid Updated daughter at bedside 02/08, discharged home 02/08, Notes For Next Care Provider Anti-hypertensives on hold & gabapentin discontinued. Reported she does not drink much fluid at home so recommending increasing PO hydration to help w/ orthostasis symptoms. BP was normotensive while off her agents during her stay. Admission HPI Per Admitting Provider This is an 84 year old female with past medical history of osteoporosis, HTN, DM, mesenteric artery stenosis who presented to the ED on 02/06/2025 for dizziness. Ana was seen & examined this afternoon with her present. She reports that 3 weeks ago she started taking gabapentin for pain in her hands. She states that she has been having ongoing dizziness since then. She reports she does notice it on occasion when changes positions but it can also occur randomly. She reports a headache and blurry/double vision as well. reports that she has been complaining of vision changes since at least last week. She has not had any falls secondary to this. She does take ASA/Plavix combo for her mesenteric artery stenosis and has a hx of stents in her abdominal area for this that were placed at [facility] [place]. She denies any CP, SOB. She reports she does feel nauseous and has chronic abdominal pain. She receives trigger point injections through pain management every few months. She denies any changes in her bowel/bladder habits and denies any LE edema. While in the ED, she underwent a head CT/CTA that did reveal an ill-defined hypodensity involving the pontomedullary brainstem may be artifactual vs age- indeterminate infarct. Neck CTA was negative. CBC was w/o leukocytosis or anemia. BMP had stable renal function & electrolytes. LFTs WNL, trop neg, TSH WNL. UA negative. Lyme negative. Code discussion did take place & she does confirm that she is a full code. Discharge Exam General: NAD, VS: BP 131/75; P80; R17; T37.1C Resp: normal respiratory effort Extremities: Moves all extremities, no edema Neuro: A&O x3 Skin: intact, no lesions noted Discharge Plan Discharge Items Patient Disposition: Home - Self-Care Reason For Visit: DIZZINESS Discharge Diagnosis: Orthostasis, medication side effect Condition on Discharge: Good Activity: Resume your previous activity Non-emergency contact: Primary Care Provider Call non-emergency contact if: you have any medication questions and your symptoms worsen Follow-up/Referrals: Meenakshi Martinez MD [Primary Care Provider] - Diet: Carb Consistent or DM2 Addtl Attending Provider Instructions: Mrs. Solitario, You were recently hospitalized secondary to dizziness. You underwent a stroke workup that was negative. Your blood pressure was found to be dropping upon standing. Your gabapentin, amlodipine, and losartan were held and you were given IV fluids with improvement of your blood pressure and symptoms. Medications: Your medication list has been reviewed and reconciled upon discharge to ensure accuracy and continuity of care. An updated list of all your medications is included with your hospital discharge paperwork. Please review this list closely, and make note of any changes. Your gabapentin has been discontinued. Please hold your amlodipine and losartan until you see your PCP in follow up. Monitor your blood pressure at home and notify your PCP if it is consistently > 180/100. Take your medications as instructed; do not skip a dose of your medicines. Make sure all of your doctors know every medicine you are taking (including polf-dut-spfwfzk medicines, vitamins, and supplements). Call your primary care provider before taking any new medicines (including over- the-counter medicines, vitamins, and supplements), because some of these may interact with your current medications, or may make your symptoms worse. Tell your primary care provider if you cannot afford your medications. Activity: You can do normal everyday activities as your body allows. Take rest breaks if you feel tired. Do not overexert. Stop activity if you have pain, shortness of breath or feel dizzy. Follow-up appointments: Make an appointment with your primary care physician within one week of discharge. A copy of this summary will be sent to them. Every time you see your primary care physician, or any other doctor, bring your medication list, and a list of questions. CONTACT YOUR PRIMARY CARE PROVIDER if you experience any of the following: Shortness of breath or difficulty breathing Fevers or chills Feeling tired with normal activity or experiencing dizziness or fainting Difficulty following your treatment plan, or difficulty taking medications CALL 911 OR GO TO THE EMERGENCY DEPARTMENT if you experience any of the following: Severe abdominal pain or nausea/vomiting Severe chest pain, or chest pain that radiates (moves) to your jaw or arm Sudden, severe shortness of breath or difficulty breathing Thank you for allowing us to participate in your care. Pending Studies at Discharge: No Stand-Alone Forms: My [facility] [employer], Smoking Cessation Medications and DC Order Prescriptions: Continued clopidogrel 75 mg tablet 75 mg PO QAM diazepam 2 mg tablet 2 mg PO ONCE PRN (Reason: anxiety) Qty: 2 0RF Rx Instructions: 1 p.o. 30 minutes prior to MRI. May repeat once. Prolia 60 mg/mL syringe 60 mg subcut Q6MO acetaminophen [Tylenol Extra Strength] 500 mg Tablet 500 - 1,000 mg PO UD PRN (Reason: Pain) aspirin 81 mg Tablet,Delayed Release (Dr/Ec) 81 mg PO QAM 30 Days Qty: 30 2RF tramadol 50 mg tablet 50 mg PO Q8 PRN (Reason: Pain) ondansetron HCl 4 mg tablet 4 mg PO Q8 PRN (Reason: Nausea) famotidine 20 mg tablet 20 mg PO QAM atorvastatin 40 mg tablet 40 mg PO QAM polyethylene glycol 3350 [Miralax] 17 gram/dose Powder 17 g PO DAILY PRN (Reason: Constipation) cholecalciferol (vitamin D3) [Vitamin D3] 25 mcg (1,000 unit) Tablet 25 mcg PO QAM Held amlodipine 5 mg tablet 5 mg PO QAM Hold Instructions: Resume on 02/14/25. until seen by PCP losartan 100 mg tablet 100 mg PO QAM Hold Instructions: Resume on 02/21/25. until seen by PCP metformin 500 mg tablet 500 mg PO QDD Hold Instructions: Resume on 02/21/25. until seen by PCP Rx Instructions: to advance to twice a day end of this month january if tolerated Discontinued gabapentin 100 mg capsule 300 mg PO HS Qty: 90 2RF Discharge Orders: Discharge Order (Routine); Ordered 02/08/25 Ordered By: Maren Perez/Other Patient Handouts: Managing Type 2 Diabetes Admission Data Admit Date/Time: 02/06/25 14:57 Attending Provider: Macho Wilkinson Admit Provider: Macho Wilkinson Primary Care Provider: Meenakshi Martinez Other Interventions: Discharge Summary Assessment (RN) Last Done: 02/08/25 11:10 Hospital Stay Data Diagnostic Imagining Performed 02/06/25 12:51 CT angio head wo/w Stat CT angio neck with con Stat 02/06/25 14:55 MRI Brain [MR brain wo con] Stat Pending Results Patient Have Any Pending Studies at Discharge: No Discharge Instructions Given to Patient (Per Discharging Provider) Maynor Fields were recently hospitalized secondary to dizziness. You underwent a stroke workup that was negative. Your blood pressure was found to be dropping upon standing. Your gabapentin, amlodipine, and losartan were held and you were given IV fluids with improvement of your blood pressure and symptoms. Medications: Your medication list has been reviewed and reconciled upon discharge to ensure accuracy and continuity of care. An updated list of all your medications is included with your hospital discharge paperwork. Please review this list closely, and make note of any changes. Your gabapentin has been discontinued. Please hold your amlodipine and losartan until you see your PCP in follow up. Monitor your blood pressure at home and notify your PCP if it is consistently > 180/100. Take your medications as instructed; do not skip a dose of your medicines. Make sure all of your doctors know every medicine you are taking (including fqhm-umw-fvlezai medicines, vitamins, and supplements). Call your primary care provider before taking any new medicines (including over- the-counter medicines, vitamins, and supplements), because some of these may interact with your current medications, or may make your symptoms worse. Tell your primary care provider if you cannot afford your medications. Activity: You can do normal everyday activities as your body allows. Take rest breaks if you feel tired. Do not overexert. Stop activity if you have pain, shortness of breath or feel dizzy. Follow-up appointments: Make an appointment with your primary care physician within one week of discharge. A copy of this summary will be sent to them. Every time you see your primary care physician, or any other doctor, bring your medication list, and a list of questions. CONTACT YOUR PRIMARY CARE PROVIDER if you experience any of the following: Shortness of breath or difficulty breathing Fevers or chills Feeling tired with normal activity or experiencing dizziness or fainting Difficulty following your treatment plan, or difficulty taking medications CALL 911 OR GO TO THE EMERGENCY DEPARTMENT if you experience any of the following: Severe abdominal pain or nausea/vomiting Severe chest pain, or chest pain that radiates (moves) to your jaw or arm Sudden, severe shortness of breath or difficulty breathing Thank you for allowing us to participate in your care. Supervising Physician Co-Signing Physician Notes The patient was not seen by me. The chart was reviewed. Case discussed with KHLOE Barraza. Agree with assessment and plan Total Time Total Time Spent Total Time Spent (In Minutes): 45 Total Time Includes: Examination of the Patient, Discharge Planning and Medication Reconciliation Coding Level of Care Code 46300 INP/OBS DISCH >30 MIN Diagnoses Dizziness R42 HTN (hypertension) I10 DM (diabetes mellitus) E11.9 Mesenteric artery stenosis K55.1
== END 2025-02-08 11:58 | disposition home or self-care (01) | DRG 149 ==
LOC: ED 11:34 → INTOOBSV 14:57 → 4W 14:57